=== PATIENT | male | born 1935 | race Caucasian/White ===

== ENCOUNTER 2023-04-30 17:25 | Inpatient (IN) | payer MEDICARE, OTHER ==
[~2023-04-30] VITALS: Ht 172.7 cm; Wt 51.7 kg
[2023-04-30] MEDS: PIPERACI/TAZO 3.375GM/D5W 50ML PB IV ONE (13:22)
[~2023-04-30 17:25] MED LIST: ASCO500T21 PO; HONE44PA TP
[2023-04-30 18:21] LABS: BASOPHILS % (AUTO) 0.2 % (0.0-2.0); EOSINOPHILS # (AUTO) 0.2 K/uL (0.0-0.7); EOSINOPHILS % (AUTO) 1.7 % (0.0-6.0); HEMATOCRIT 29 % (39-51); HEMOGLOBIN 9.6 g/dL (13.5-17.5); LYMPHOCYTES # (AUTO) 1.4 K/uL (0.8-4.8); LYMPHOCYTES % (AUTO) 10.6 % (20.0-44.0); MEAN CORPUSCULAR HEMOGLOBIN 31 PG (26.0-33.0); MEAN CORPUSCULAR HGB CONC 33 g/dl (31.0-36.0); MEAN CORPUSCULAR VOLUME 93 fL (80-96); MONOCYTES % (AUTO) 7.9 % (2.0-12.0); NEUTROPHILS # (AUTO) 10.5 K/uL (1.8-8.9); NEUTROPHILS % (AUTO) 79.6 % (43.0-81.0); PLATELET COUNT (AUTO) 513 K/uL (150-450); RED BLOOD CELL COUNT(AUTO) 3.11 MIL/uL (4.5-6.0); WHITE BLOOD COUNT (AUTO) 13.2 K/uL (4.3-11.0)
[2023-04-30] MEDS: PIPERACILLIN /TAZOBACTAM 3.375 G in IV D5W 50 ML IV ONE (18:25)
[2023-04-30 18:38] LABS: INR 1.1 (0.91-1.10); PARTIAL THROMBOPLASTIN TIME 35.1 SEC (24.3-34.3); PROTHROMBIN TIME 11.6 SECS (9.2-11.1)
[2023-04-30] MEDS ORDERED: INSU100I30 SQ (18:41)
[2023-04-30] MEDS ORDERED: POTA-88 PO (18:41)
[2023-04-30] MEDS ORDERED: VITS42.53 TP (18:41)
[2023-04-30] MEDS ORDERED: GABA300C PO (18:41)
[2023-04-30] MEDS ORDERED: ARGI1POW13 PO (18:41)
[2023-04-30] MEDS ORDERED: HYDR100T27 PO (18:41)
[2023-04-30] MEDS ORDERED: SENN-261 PO (18:41)
[2023-04-30] MEDS ORDERED: MULT-213 PO (18:41)
[2023-04-30] MEDS ORDERED: AMLO-212 PO (18:41)
[2023-04-30] MEDS ORDERED: ACET325T53 PO (18:41)
[2023-04-30] MEDS ORDERED: METF750T46 PO (18:41)
[2023-04-30] MEDS ORDERED: ASPI-1169 PO (18:41)
[2023-04-30] MEDS ORDERED: ATOR80TA PO (18:41)
[2023-04-30] MEDS ORDERED: CARV6.252 PO (18:41)
[2023-04-30] MEDS ORDERED: PROM12.513 PO (18:41)
[2023-04-30] MEDS ORDERED: FURO40TA5 PO (18:41)
[2023-04-30] MEDS ORDERED: APIX5TAB PO (18:41)
[2023-04-30] MEDS ORDERED: POVI480S2 TP (18:41)
[2023-04-30] MEDS ORDERED: LOSA100T31 PO (18:41)
[2023-04-30] MEDS ORDERED: POLY17PO4 PO (18:41)
[2023-04-30] MEDS ORDERED: CLOP75TA15 PO (18:41)
[2023-04-30] MEDS ORDERED: ZINC220C6 PO (18:41)
[2023-04-30] MEDS ORDERED: OMEP20CA15 PO (18:41)
[2023-04-30] MEDS ORDERED: NA P133E RC (18:41)
[2023-04-30] MEDS ORDERED: DOCU100C36 PO (18:41)
[2023-04-30] MEDS ORDERED: TRAM50TA2 PO (18:41)
[2023-04-30] MEDS ORDERED: PIOG15TA8 PO (18:41)
[2023-04-30] MEDS ORDERED: FERR325T23 PO (18:41)
[2023-04-30] MEDS ORDERED: BISA10SU11 RC (18:41)
[2023-04-30 18:42] LABS: LACTIC ACID 1.4 mmol/L (0.4-2.0)
[2023-04-30 18:55] LABS: CALCIUM, SERUM 9.7 mg/dL (8.5-10.1); CREATININE 0.9 mg/dL (0.6-1.3); POTASSIUM 4.8 mmol/L (3.5-5.1)
[2023-04-30] MEDS: VANCOMYCIN 1 GM in IV D5W 250 ML IV ONE (19:00)
[2023-04-30 19:01] LABS: ALBUMIN 2.4 g/dL (3.4-5.0); BILIRUBIN,DIRECT 0.2 mg/dL (0.0-0.2); BILIRUBIN,TOTAL 0.6 mg/dL (0.2-1.0); TOTAL PROTEIN, SERUM 7.1 g/dL (6.4-8.2)
[2023-04-30] MEDS: IV LR 1000 ML 1,000 ML BAG IV ONE (19:15)
[2023-04-30 19:25] LABS: APPEARANCE,URINE CLEAR (CLEAR); BILIRUBIN,URINE NEGATIVE (NEGATIVE); BLOOD, URINE NEGATIVE Ery/uL (NEGATIVE); COLOR,URINE YELLOW (YELLOW); KETONES,URINE 2+ mg/dL (NEGATIVE); LEUKOCYTE ESTERASE ,URINE NEGATIVE (NEGATIVE); NITRITE, URINE NEGATIVE (NEGATIVE); PH,URINE 6.5 (5.0-8.0); PROTEIN,URINE NEGATIVE (NEGATIVE); UGLUCOSE 3+ mg/dL (NEGATIVE); UROBILINOGEN,URINE 0.2 EU/dL (0.2)
[2023-04-30 20:25] LABS: SITE, VBG Other; VBG BASE EXCESS -2.8 mmol/L (-3-3); VBG COHb 0.3 %; VBG MetHb 1.4 %; VBG O2Hb 22.4 %; VBG OXYGEN SATURATION 22.8 %; VBG PCO2 39.4 mmHg (40-52); VBG PH 7.369 (7.31-7.41); VBG PO2 16.3 mmHg (30-50); VBG TOTAL HEMOGLOBIN 9.3 G/dL (13.5-18.0); VENT MODE, VBG Room Air
[2023-04-30] MEDS ORDERED: INSULIN REGULAR, HUMAN 100 UNIT/ML 10 ML VIAL ONE (21:06)
[2023-04-30] MEDS: INSULIN ASPART/LISPRO 100 UNIT/ML CARTRIDGE SQ ONE (21:18)
[2023-04-30 21:19] LABS: ADD URINE CULTURE NO; BACTERIA,URINE None seen /HPF (None Seen); RBC,URINE NONE SEEN /HPF (0-2); SQUAMOUS EPITHELIAL CELL,UR None Seen /HPF (None Seen); WBC,URINE NONE SEEN /HPF (0-3)
[2023-04-30] MEDS ORDERED: SENNOSIDES 8.6 MG TABLET PO PRN (21:30)
[2023-04-30] MEDS ORDERED: MAGNESIUM HYDROXIDE 30 ML UDC PO PRN (22:00)
[2023-04-30] MEDS ORDERED: DEXTROSE 50%-WATER 50 ML DISP.SYRIN IV PRN (22:00)
[2023-04-30] MEDS ORDERED: ONDANSETRON HCL/PF 4 MG/2 ML VIAL IVP PRN (22:00)
[2023-04-30] MEDS ORDERED: MORPHINE SULFATE INJ 2 MG/ML DISP.SYRIN IV PRN (22:00)
[2023-04-30] MEDS ORDERED: Z GUARD REMEDY 4 OZ OINT TP PRN (22:00)
[2023-04-30] MEDS ORDERED: MAG HYDROX/AL HYDROX/SIMETH 30 ML UDC PO PRN (22:00)
[2023-04-30] MEDS ORDERED: ZOLPIDEM TARTRATE 5 MG TABLET PO PRN (22:00)
[2023-04-30 22:30] VITALS: BP 126/68; TEMP 98.2; O2SAT 97
[2023-04-30 23:00] VITALS: BP 126/69; TEMP 97.9; O2SAT 96
[2023-04-30] MEDS: BLOOD SUGAR DIAGNOSTIC 1 EACH STRIP VI SCH (23:47)
[2023-04-30] MEDS: IV NS 0.9% 1,000 ML IV PRN (23:49)
[2023-04-30] MEDS: PIPERACILLIN /TAZOBACTAM 3.375 G in IV D5W 50 ML IV SCH (23:51)
[2023-04-30] MEDS: *INSULIN REGULAR(HUMULIN R)HUM 100 UNIT/ML VIAL SQ PRN (23:52)
[2023-05-01] MEDS: VANCOMYCIN 1 GM /D5W 250 ML PB IV ONE (02:07)
[2023-05-01] MEDS: VANCOMYCIN 1 GM in IV NS 0.9% 250 ML IV ONE (02:11)
[2023-05-01 04:00] VITALS: BP 130/70; TEMP 98; O2SAT 97
[2023-05-01] MEDS: PIPERACI/TAZO 3.375GM/D5W 50ML PB IV ONE (05:11)
[2023-05-01 07:27] LABS: BASOPHILS % (AUTO) 0.3 % (0.0-2.0); EOSINOPHILS # (AUTO) 0.4 K/uL (0.0-0.7); EOSINOPHILS % (AUTO) 2.3 % (0.0-6.0); HEMATOCRIT 30 % (39-51); LYMPHOCYTES # (AUTO) 2.1 K/uL (0.8-4.8); LYMPHOCYTES % (AUTO) 13.3 % (20.0-44.0); MEAN CORPUSCULAR HEMOGLOBIN 31 PG (26.0-33.0); MEAN CORPUSCULAR HGB CONC 34 g/dl (31.0-36.0); MEAN CORPUSCULAR VOLUME 93 fL (80-96); MONOCYTES # (AUTO) 1.5 K/uL (0.1-1.30); MONOCYTES % (AUTO) 9.7 % (2.0-12.0); NEUTROPHILS # (AUTO) 11.6 K/uL (1.8-8.9); NEUTROPHILS % (AUTO) 74.4 % (43.0-81.0); PLATELET COUNT (AUTO) 478 K/uL (150-450); RED BLOOD CELL COUNT(AUTO) 3.23 MIL/uL (4.5-6.0); RED CELL DISTRIBUTION WIDTH 15.1 % (11.5-15.0); WHITE BLOOD COUNT (AUTO) 15.6 K/uL (4.3-11.0)
[2023-05-01 07:58] LABS: CALCIUM, SERUM 9.6 mg/dL (8.5-10.1); CARBON DIOXIDE 27 mmol/L (21-32); CHLORIDE 101 mmol/L (98-107); CREATININE 0.8 mg/dL (0.6-1.3); GLUCOSE 152 mg/dL (74-106); MAGNESIUM 1.4 mg/dL (1.8-2.4); POTASSIUM 4.7 mmol/L (3.5-5.1); SODIUM SERUM 136 mmol/L (136-145); UREA NITROGEN, BLOOD 17 mg/dL (7-18)
[2023-05-01] MEDS: PANTOPRAZOLE 40 MG TABLET.DR PO SCH (08:25)
[2023-05-01] MEDS: INSULIN GLARGINE, 100 UNIT/ML CARTRIDGE SQ SCH (08:59)
[2023-05-01] MEDS: ASPIRIN 81 MG TAB.CHEW PO SCH (09:00)
[2023-05-01] MEDS: CARVEDILOL 6.25 MG TABLET PO SCH (09:01)
[2023-05-01] MEDS: FERROUS SULFATE (325 MG) 325 MG/TAB TABLET PO SCH (09:02)
[2023-05-01] MEDS: ASCORBIC ACID 500 MG TABLET PO SCH (09:02)
[2023-05-01] MEDS: DOCUSATE SODIUM 100 MG CAPSULE PO SCH (09:02)
[2023-05-01] MEDS: ZINC SULFATE 220 MG CAPSULE PO SCH (09:02)
[2023-05-01] MEDS: CLOPIDOGREL BISULFATE 75 MG TABLET PO SCH (09:02)
[2023-05-01] MEDS: MULTIVIT W/MINERALS 1 TAB TABLET PO SCH (09:02)
[2023-05-01] MEDS: GABAPENTIN 300 MG CAPSULE PO SCH (09:02)
[2023-05-01] MEDS: AMLODIPINE BESYLATE 5 MG TABLET PO SCH (09:02)
[2023-05-01] MEDS: POLYETHYLENE GLYCOL 3350 17 GM POWD.PACK PO SCH (09:03)
[2023-05-01] MEDS: APIXABAN 5 MG TABLET PO SCH (09:08)
[2023-05-01] MEDS: PIOGLITAZONE HCL 15 MG TABLET PO SCH (09:13)
[2023-05-01] MEDS: INSULIN REGULAR, HUMAN 100 UNIT/ML 3 ML VIAL SQ PRN (09:40)
[2023-05-01] MEDS: ACETAMINOPHEN 325 MG TABLET PO PRN (09:45)
[2023-05-01] MEDS ORDERED: MAGNESIUM OXIDE 400 MG TABLET PO ONE (10:00)
[2023-05-01] MEDS: ARGININE/GLUTAMINE/CALCIUM BMB 1 EACH POWD.PACK PO SCH (12:54)
[2023-05-01] MEDS: MAGNESIUM OXIDE 400 MG TABLET PO SCH (13:23)
[2023-05-01] MEDS: VANCOMYCIN 500 MG in IV D5W 100ml IV SCH (14:32)
[2023-05-01] MEDS: DAKINS QUARTER STRENGTH (0.125%) 480 ML BOTTLE TOP SCH (14:33)
[2023-05-01 16:00] VITALS: BP 93/47; TEMP 97.1; O2SAT 99
[2023-05-01] MEDS: LOSARTAN POTASSIUM 50 MG TABLET PO SCH (21:18)
[2023-05-01] MEDS: ATORVASTATIN 40 MG TABLET PO SCH (21:22)
[2023-05-02] VITALS: BP 100/60; TEMP 97.7; O2SAT 100
[2023-05-02 04:00] VITALS: BP 99/68; TEMP 97.8; O2SAT 100
[2023-05-02 07:48] LABS: BASOPHILS % (AUTO) 0.2 % (0.0-2.0); EOSINOPHILS # (AUTO) 0.3 K/uL (0.0-0.7); HEMATOCRIT 28 % (39-51); HEMOGLOBIN 9.4 g/dL (13.5-17.5); LYMPHOCYTES # (AUTO) 1.7 K/uL (0.8-4.8); LYMPHOCYTES % (AUTO) 10.8 % (20.0-44.0); MEAN CORPUSCULAR HEMOGLOBIN 31 PG (26.0-33.0); MEAN CORPUSCULAR HGB CONC 33 g/dl (31.0-36.0); MEAN CORPUSCULAR VOLUME 93 fL (80-96); MONOCYTES # (AUTO) 0.9 K/uL (0.1-1.30); MONOCYTES % (AUTO) 5.9 % (2.0-12.0); NEUTROPHILS # (AUTO) 12.8 K/uL (1.8-8.9); NEUTROPHILS % (AUTO) 81.1 % (43.0-81.0); PLATELET COUNT (AUTO) 459 K/uL (150-450); RED BLOOD CELL COUNT(AUTO) 3.03 MIL/uL (4.5-6.0); RED CELL DISTRIBUTION WIDTH 15.1 % (11.5-15.0); WHITE BLOOD COUNT (AUTO) 15.8 K/uL (4.3-11.0)
[2023-05-02 08:00] VITALS: BP 150/65; TEMP 97.5; O2SAT 97
[2023-05-02 08:29] LABS: BILIRUBIN,TOTAL 0.4 mg/dL (0.2-1.0); CALCIUM, SERUM 8.7 mg/dL (8.5-10.1); CREATININE 0.7 mg/dL (0.6-1.3); MAGNESIUM 1.5 mg/dL (1.8-2.4); POTASSIUM 3.8 mmol/L (3.5-5.1); TOTAL PROTEIN, SERUM 6.3 g/dL (6.4-8.2)
[2023-05-02] MEDS: THERAHONEY GEL 1.5 OZ TUBE TP SCH (13:00)
[2023-05-02] MEDS: PROSOURCE / PROSTAT (PYXIS) 30 ML UDC PO SCH (13:20)
[2023-05-02] MEDS: PREGABALIN 25 MG CAPSULE PO SCH (13:23)
[2023-05-02 16:00] VITALS: BP 145/85; TEMP 97.1; O2SAT 100
[2023-05-02 20:00] VITALS: BP 112/66; TEMP 97.9; O2SAT 100
[2023-05-03 04:00] VITALS: BP 124/47; TEMP 97.9; O2SAT 100
[2023-05-03] MEDS: HYDROCODONE/APAP 10/325MG TABLET PO PRN (06:00)
[2023-05-03 09:15] VITALS: BP 140/63; TEMP 97.5; O2SAT 100
[2023-05-03 10:12] LABS: BASOPHILS % (AUTO) 0.2 % (0.0-2.0); EOSINOPHILS # (AUTO) 0.2 K/uL (0.0-0.7); EOSINOPHILS % (AUTO) 1.6 % (0.0-6.0); HEMATOCRIT 26 % (39-51); HEMOGLOBIN 8.8 g/dL (13.5-17.5); LYMPHOCYTES # (AUTO) 1.9 K/uL (0.8-4.8); LYMPHOCYTES % (AUTO) 16.8 % (20.0-44.0); MEAN CORPUSCULAR HEMOGLOBIN 32 PG (26.0-33.0); MEAN CORPUSCULAR HGB CONC 34 g/dl (31.0-36.0); MEAN CORPUSCULAR VOLUME 95 fL (80-96); MONOCYTES # (AUTO) 0.7 K/uL (0.1-1.30); MONOCYTES % (AUTO) 6.6 % (2.0-12.0); NEUTROPHILS # (AUTO) 8.5 K/uL (1.8-8.9); NEUTROPHILS % (AUTO) 74.8 % (43.0-81.0); PLATELET COUNT (AUTO) 422 K/uL (150-450); RED BLOOD CELL COUNT(AUTO) 2.79 MIL/uL (4.5-6.0); RED CELL DISTRIBUTION WIDTH 15.3 % (11.5-15.0); WHITE BLOOD COUNT (AUTO) 11.3 K/uL (4.3-11.0)
[2023-05-03 10:45] LABS: CALCIUM, SERUM 8.1 mg/dL (8.5-10.1); CREATININE 0.8 mg/dL (0.6-1.3); MAGNESIUM 1.5 mg/dL (1.8-2.4); PHOSPHORUS 2.7 mg/dL (2.5-4.9); POTASSIUM 4.1 mmol/L (3.5-5.1)
[2023-05-03] MEDS: MAGNESIUM OXIDE 400 MG TABLET PO ONE (11:08)
[2023-05-03] MEDS ORDERED: IOHEXOL-350 100 ML VIAL IV ONE (13:58)
[2023-05-03] MEDS ORDERED: IV NS 0.9% 250 ML IV ONE (13:58)
[2023-05-03] MEDS ORDERED: CT SWABBABLE VALVE TRANS SET 1 EA INFUS.SET MC ONE (13:58)
[2023-05-03 16:09] VITALS: BP 139/71; TEMP 97.3; O2SAT 99
[2023-05-03 20:00] VITALS: BP 140/63; TEMP 98.9; O2SAT 98
[2023-05-04 04:00] VITALS: BP 148/63; TEMP 98.4; O2SAT 100
[2023-05-04 06:37] LABS: BASOPHILS % (AUTO) 0.1 % (0.0-2.0); EOSINOPHILS # (AUTO) 0.3 K/uL (0.0-0.7); EOSINOPHILS % (AUTO) 2.5 % (0.0-6.0); HEMATOCRIT 27 % (39-51); HEMOGLOBIN 8.6 g/dL (13.5-17.5); LYMPHOCYTES # (AUTO) 1.9 K/uL (0.8-4.8); LYMPHOCYTES % (AUTO) 14.4 % (20.0-44.0); MEAN CORPUSCULAR HEMOGLOBIN 30 PG (26.0-33.0); MEAN CORPUSCULAR HGB CONC 32 g/dl (31.0-36.0); MEAN CORPUSCULAR VOLUME 94 fL (80-96); MONOCYTES # (AUTO) 0.8 K/uL (0.1-1.30); MONOCYTES % (AUTO) 6.1 % (2.0-12.0); NEUTROPHILS # (AUTO) 10.1 K/uL (1.8-8.9); NEUTROPHILS % (AUTO) 76.9 % (43.0-81.0); PLATELET COUNT (AUTO) 416 K/uL (150-450); RED BLOOD CELL COUNT(AUTO) 2.84 MIL/uL (4.5-6.0); RED CELL DISTRIBUTION WIDTH 15.4 % (11.5-15.0); WHITE BLOOD COUNT (AUTO) 13.1 K/uL (4.3-11.0)
[2023-05-04 07:01] LABS: CALCIUM, SERUM 8.5 mg/dL (8.5-10.1); CREATININE 0.7 mg/dL (0.6-1.3); MAGNESIUM 1.7 mg/dL (1.8-2.4); PHOSPHORUS 2.7 mg/dL (2.5-4.9); POTASSIUM 4.3 mmol/L (3.5-5.1)
[2023-05-04 08:57] VITALS: BP 139/71; TEMP 97.3; O2SAT 99
[2023-05-04] MEDS: MAGNESIUM OXIDE 400 MG TABLET PO ONE (11:19)
[2023-05-04] MEDS: PIPERACILLIN /TAZOBACTAM 3.375 G in IV D5W 100 ML IV SCH (13:12)
[2023-05-04 16:40] VITALS: BP 147/63; TEMP 98.4; O2SAT 100
[2023-05-04 20:00] VITALS: BP 106/47; TEMP 98.1; O2SAT 100
[2023-05-05 04:00] VITALS: BP 117/73; TEMP 97.9; O2SAT 100
[2023-05-05 07:44] LABS: BASOPHILS % (AUTO) 0.3 % (0.0-2.0); EOSINOPHILS # (AUTO) 0.4 K/uL (0.0-0.7); EOSINOPHILS % (AUTO) 2.7 % (0.0-6.0); HEMATOCRIT 23 % (39-51); HEMOGLOBIN 7.5 g/dL (13.5-17.5); LYMPHOCYTES # (AUTO) 2.1 K/uL (0.8-4.8); LYMPHOCYTES % (AUTO) 14.3 % (20.0-44.0); MEAN CORPUSCULAR HEMOGLOBIN 31 PG (26.0-33.0); MEAN CORPUSCULAR HGB CONC 33 g/dl (31.0-36.0); MEAN CORPUSCULAR VOLUME 94 fL (80-96); NEUTROPHILS # (AUTO) 10.9 K/uL (1.8-8.9); NEUTROPHILS % (AUTO) 75.7 % (43.0-81.0); PLATELET COUNT (AUTO) 392 K/uL (150-450); RED BLOOD CELL COUNT(AUTO) 2.42 MIL/uL (4.5-6.0); RED CELL DISTRIBUTION WIDTH 15.6 % (11.5-15.0); WHITE BLOOD COUNT (AUTO) 14.4 K/uL (4.3-11.0)
[2023-05-05 09:41] LABS: CARBON DIOXIDE 24 mmol/L (21-32); CHLORIDE 100 mmol/L (98-107); CREATININE 0.9 mg/dL (0.6-1.3); GLUCOSE 328 mg/dL (74-106); MAGNESIUM 1.8 mg/dL (1.8-2.4); PHOSPHORUS 3.4 mg/dL (2.5-4.9); POTASSIUM 4.1 mmol/L (3.5-5.1); SODIUM SERUM 133 mmol/L (136-145); UREA NITROGEN, BLOOD 29 mg/dL (7-18)
[2023-05-05 10:18] VITALS: BP 126/71; TEMP 97.3; O2SAT 99
[2023-05-05] MEDS: VANCOMYCIN 750 MG in IV D5W 250 ML IV SCH (13:24)
[2023-05-05 16:46] VITALS: BP 130/63; TEMP 98.4; O2SAT 100
[2023-05-05 20:00] VITALS: BP 124/58; TEMP 97.4; O2SAT 100
[2023-05-06 04:00] VITALS: BP 132/94; TEMP 99; O2SAT 98
[2023-05-06 06:57] LABS: BASOPHILS # (AUTO) 0.1 K/uL (0.0-0.2); BASOPHILS % (AUTO) 0.4 % (0.0-2.0); EOSINOPHILS # (AUTO) 0.5 K/uL (0.0-0.7); EOSINOPHILS % (AUTO) 3.2 % (0.0-6.0); HEMATOCRIT 27 % (39-51); HEMOGLOBIN 8.8 g/dL (13.5-17.5); LYMPHOCYTES # (AUTO) 2.5 K/uL (0.8-4.8); LYMPHOCYTES % (AUTO) 16.7 % (20.0-44.0); MEAN CORPUSCULAR HEMOGLOBIN 31 PG (26.0-33.0); MEAN CORPUSCULAR HGB CONC 33 g/dl (31.0-36.0); MEAN CORPUSCULAR VOLUME 94 fL (80-96); MONOCYTES # (AUTO) 1.4 K/uL (0.1-1.30); MONOCYTES % (AUTO) 9.2 % (2.0-12.0); NEUTROPHILS # (AUTO) 10.8 K/uL (1.8-8.9); NEUTROPHILS % (AUTO) 70.5 % (43.0-81.0); PLATELET COUNT (AUTO) 474 K/uL (150-450); RED BLOOD CELL COUNT(AUTO) 2.86 MIL/uL (4.5-6.0); RED CELL DISTRIBUTION WIDTH 15.6 % (11.5-15.0); WHITE BLOOD COUNT (AUTO) 15.2 K/uL (4.3-11.0)
[2023-05-06 07:17] LABS: CALCIUM, SERUM 8.3 mg/dL (8.5-10.1); CARBON DIOXIDE 27 mmol/L (21-32); CHLORIDE 102 mmol/L (98-107); CREATININE 0.9 mg/dL (0.6-1.3); GLUCOSE 90 mg/dL (74-106); PHOSPHORUS 3.6 mg/dL (2.5-4.9); POTASSIUM 4.6 mmol/L (3.5-5.1); SODIUM SERUM 132 mmol/L (136-145); UREA NITROGEN, BLOOD 31 mg/dL (7-18)
[2023-05-06 08:00] VITALS: BP 107/60; TEMP 98; O2SAT 98
[2023-05-06 16:00] VITALS: BP 128/64; TEMP 98; O2SAT 99
[2023-05-06] MEDS: LIDOCAINE 1% INJ 50 ML MDV IJ ONE (17:35)
[2023-05-06 20:00] VITALS: BP 102/70; TEMP 97.9; O2SAT 99
[2023-05-07 04:00] VITALS: BP 114/57; TEMP 97.7; O2SAT 99
[2023-05-07 07:18] LABS: BASOPHILS # (AUTO) 0.1 K/uL (0.0-0.2); BASOPHILS % (AUTO) 0.4 % (0.0-2.0); EOSINOPHILS # (AUTO) 0.5 K/uL (0.0-0.7); EOSINOPHILS % (AUTO) 2.6 % (0.0-6.0); HEMATOCRIT 25 % (39-51); HEMOGLOBIN 8.4 g/dL (13.5-17.5); LYMPHOCYTES # (AUTO) 2.2 K/uL (0.8-4.8); LYMPHOCYTES % (AUTO) 11.9 % (20.0-44.0); MEAN CORPUSCULAR HEMOGLOBIN 32 PG (26.0-33.0); MEAN CORPUSCULAR HGB CONC 34 g/dl (31.0-36.0); MEAN CORPUSCULAR VOLUME 94 fL (80-96); MONOCYTES # (AUTO) 1.6 K/uL (0.1-1.30); MONOCYTES % (AUTO) 8.9 % (2.0-12.0); NEUTROPHILS # (AUTO) 13.8 K/uL (1.8-8.9); NEUTROPHILS % (AUTO) 76.2 % (43.0-81.0); PLATELET COUNT (AUTO) 473 K/uL (150-450); RED BLOOD CELL COUNT(AUTO) 2.66 MIL/uL (4.5-6.0); RED CELL DISTRIBUTION WIDTH 15.5 % (11.5-15.0); WHITE BLOOD COUNT (AUTO) 18.1 K/uL (4.3-11.0)
[2023-05-07 07:49] LABS: CALCIUM, SERUM 8.2 mg/dL (8.5-10.1); CREATININE 0.9 mg/dL (0.6-1.3); POTASSIUM 4.9 mmol/L (3.5-5.1)
[2023-05-07 13:20] VITALS: BP 104/51; TEMP 97.7; O2SAT 99
[2023-05-07] MEDS: VANCOMYCIN 500 MG in IV D5W 100ml IV SCH (14:51)
[2023-05-07 20:00] VITALS: BP 114/51; TEMP 98.2; O2SAT 99
[2023-05-08 04:00] VITALS: BP 108/77; TEMP 98.4; O2SAT 99
[2023-05-08 07:00] LABS: BASOPHILS % (AUTO) 0.3 % (0.0-2.0); EOSINOPHILS # (AUTO) 0.5 K/uL (0.0-0.7); EOSINOPHILS % (AUTO) 2.9 % (0.0-6.0); HEMATOCRIT 22 % (39-51); HEMOGLOBIN 7.4 g/dL (13.5-17.5); LYMPHOCYTES # (AUTO) 2.1 K/uL (0.8-4.8); LYMPHOCYTES % (AUTO) 13.1 % (20.0-44.0); MEAN CORPUSCULAR HEMOGLOBIN 32 PG (26.0-33.0); MEAN CORPUSCULAR HGB CONC 34 g/dl (31.0-36.0); MEAN CORPUSCULAR VOLUME 93 fL (80-96); MONOCYTES # (AUTO) 1.6 K/uL (0.1-1.30); MONOCYTES % (AUTO) 9.6 % (2.0-12.0); NEUTROPHILS # (AUTO) 12.1 K/uL (1.8-8.9); NEUTROPHILS % (AUTO) 74.1 % (43.0-81.0); PLATELET COUNT (AUTO) 416 K/uL (150-450); RED BLOOD CELL COUNT(AUTO) 2.34 MIL/uL (4.5-6.0); RED CELL DISTRIBUTION WIDTH 15.6 % (11.5-15.0); WHITE BLOOD COUNT (AUTO) 16.3 K/uL (4.3-11.0)
[2023-05-08 07:33] LABS: CALCIUM, SERUM 8.2 mg/dL (8.5-10.1); CARBON DIOXIDE 24 mmol/L (21-32); CHLORIDE 98 mmol/L (98-107); CREATININE 0.9 mg/dL (0.6-1.3); GLUCOSE 213 mg/dL (74-106); PHOSPHORUS 3.6 mg/dL (2.5-4.9); SODIUM SERUM 127 mmol/L (136-145); UREA NITROGEN, BLOOD 37 mg/dL (7-18)
[2023-05-08] MEDS ORDERED: LEVO500T90 PO (09:30)
[2023-05-08] MEDS ORDERED: DOXY100C2 PO (09:30)
[2023-05-08 12:00] VITALS: BP 128/57; TEMP 98.4; O2SAT 99
== END 2023-05-08 14:30 | DRG 622 ==
LOC: ER 17:35 → TELE1 21:55 → MEDSG1 23:05
PROVIDERS: ADMIT Nurse Practitioner Acute Care; ATTEND Internal Medicine
PROC: 0JB70ZZ Excision of Back Subcutaneous Tissue and Fascia, Open Approach (ICD-10-PCS; principal; 2023-05-02)
PROC: 05HC33Z Insertion of Infusion Device into Left Basilic Vein, Percutaneous Approach (ICD-10-PCS; 2023-05-03)
PROC: 0QBQ0ZZ Excision of Right Toe Phalanx, Open Approach (ICD-10-PCS; 2023-05-07)
DX: E11.69 Type 2 diabetes mellitus with other specified complication (principal); G93.41 Metabolic encephalopathy; L89.153 Pressure ulcer of sacral region, stage 3; E11.52 Type 2 diabetes mellitus with diabetic peripheral angiopathy with gangrene; E44.0 Moderate protein-calorie malnutrition; R65.10 Systemic inflammatory response syndrome (SIRS) of non-infectious origin without acute organ dysfunction; M86.172 Other acute osteomyelitis, left ankle and foot; M86.171 Other acute osteomyelitis, right ankle and foot; I70.268 Atherosclerosis of native arteries of extremities with gangrene, other extremity; E11.621 Type 2 diabetes mellitus with foot ulcer; E11.65 Type 2 diabetes mellitus with hyperglycemia; Z20.822 Contact with and (suspected) exposure to COVID-19; F03.90 Unspecified dementia, unspecified severity, without behavioral disturbance, psychotic disturbance, mood disturbance, and anxiety; Z86.69 Personal history of other diseases of the nervous system and sense organs; I25.10 Atherosclerotic heart disease of native coronary artery without angina pectoris; E78.5 Hyperlipidemia, unspecified; E11.622 Type 2 diabetes mellitus with other skin ulcer; E11.42 Type 2 diabetes mellitus with diabetic polyneuropathy; E88.09 Other disorders of plasma-protein metabolism, not elsewhere classified; I11.0 Hypertensive heart disease with heart failure; I50.9 Heart failure, unspecified; N40.0 Benign prostatic hyperplasia without lower urinary tract symptoms; D64.9 Anemia, unspecified; D72.829 Elevated white blood cell count, unspecified; G89.29 Other chronic pain; Z79.84 Long term (current) use of oral hypoglycemic drugs; Z79.4 Long term (current) use of insulin; Z79.02 Long term (current) use of antithrombotics/antiplatelets; Z79.01 Long term (current) use of anticoagulants; Z79.82 Long term (current) use of aspirin; Z91.199 Patient's noncompliance with other medical treatment and regimen due to unspecified reason; L89.300 Pressure ulcer of unspecified buttock, unstageable; L98.494 Non-pressure chronic ulcer of skin of other sites with necrosis of bone
CPT/HCPCS: 36410; 36415; 71045-TC; 73660-TC; 80048-TC; 80053-TC; 80076-TC; 80202-TC; 81001; 82607-TC; 82728-TC; 82803-TC; 82962-TC; 83540-TC; 83605-TC; 83735-TC; 84100-TC; 85025-TC; 85730-TC; 87040-TC; 87086-TC; 93307-TC; 97110-TC; 97530-TC; A4223; A6253; A6403; G0378; J1815; J2543; J3370; J3371; J3490; J7030; J7050; J7060; J7120; Q9967

== ENCOUNTER 2023-05-15 17:12 | Inpatient (IN) | payer MEDICARE, OTHER ==
[~2023-05-15] VITALS: Ht 167.6 cm; Wt 58.1 kg
[~2023-05-15 17:12] MED LIST changes: +ACET325T53 PO; +AMLO-212 PO; +APIX5TAB PO; +ARGI1POW13 PO; +ASPI-1169 PO; +ATOR80TA PO; +BISA10SU11 RC; +CARV6.252 PO; +CLOP75TA15 PO; +DOCU100C36 PO; +DOXY100C2 PO; +FERR325T23 PO; +FURO40TA5 PO; +GABA300C PO; +HYDR100T27 PO; +INSU100I30 SQ; +LEVO500T90 PO; +LOSA100T31 PO; +METF750T46 PO; +MULT-213 PO; +NA P133E RC; +OMEP20CA15 PO; +PIOG15TA8 PO; +POLY17PO4 PO; +POTA-88 PO; +POVI480S2 TP; +PROM12.513 PO; +SENN-261 PO; +TRAM50TA2 PO; +VITS42.53 TP; +ZINC220C6 PO
[2023-05-15] MEDS ORDERED: CHOL100043 PO (18:24)
[2023-05-15] MEDS ORDERED: LEVO250T59 PO (18:24)
[2023-05-15] MEDS ORDERED: MANUKA HONEY TP (18:24)
[2023-05-15] MEDS ORDERED: GLUC1KIT IM (18:24)
[2023-05-15] MEDS ORDERED: DOXY100T2 PO (18:24)
[2023-05-15] MEDS ORDERED: POVI3780 TP (18:24)
[2023-05-15] MEDS ORDERED: TRAMADOL HCL 50 MG TABLET ONE (18:25)
[2023-05-15 18:27] LABS: BASOPHILS # (AUTO) 0.1 K/uL (0.0-0.2); BASOPHILS % (AUTO) 0.5 % (0.0-2.0); EOSINOPHILS # (AUTO) 0.3 K/uL (0.0-0.7); EOSINOPHILS % (AUTO) 2.3 % (0.0-6.0); HEMATOCRIT 23 % (39-51); HEMOGLOBIN 7.6 g/dL (13.5-17.5); LYMPHOCYTES # (AUTO) 1.3 K/uL (0.8-4.8); LYMPHOCYTES % (AUTO) 9.4 % (20.0-44.0); MEAN CORPUSCULAR HEMOGLOBIN 31 PG (26.0-33.0); MEAN CORPUSCULAR HGB CONC 33 g/dl (31.0-36.0); MEAN CORPUSCULAR VOLUME 92 fL (80-96); MONOCYTES # (AUTO) 0.7 K/uL (0.1-1.30); MONOCYTES % (AUTO) 4.8 % (2.0-12.0); NEUTROPHILS # (AUTO) 11.7 K/uL (1.8-8.9); PLATELET COUNT (AUTO) 533 K/uL (150-450); RED BLOOD CELL COUNT(AUTO) 2.48 MIL/uL (4.5-6.0); RED CELL DISTRIBUTION WIDTH 16.3 % (11.5-15.0); WHITE BLOOD COUNT (AUTO) 14.1 K/uL (4.3-11.0)
[2023-05-15] MEDS: TRAMADOL HCL 50 MG TABLET PO ONE (18:32)
[2023-05-15 18:40] LABS: CARBON DIOXIDE 24 mmol/L (21-32); CHLORIDE 97 mmol/L (98-107); CREATININE 0.8 mg/dL (0.6-1.3); GLUCOSE 185 mg/dL (74-106); POTASSIUM 5.2 mmol/L (3.5-5.1); SODIUM SERUM 124 mmol/L (136-145); UREA NITROGEN, BLOOD 18 mg/dL (7-18)
[2023-05-15 18:48] LABS: INR 1.13 (0.91-1.10); PARTIAL THROMBOPLASTIN TIME 51.6 SEC (24.3-34.3); PROTHROMBIN TIME 11.5 SECS (9.2-11.1)
[2023-05-15] MEDS ORDERED: MORPHINE SULFATE INJ 4 MG/ML DISP.SYRIN ONE (20:02)
[2023-05-15] MEDS: IV NS 0.9% 1,000 ML BAG IV ONE (20:03)
[2023-05-15] MEDS: MORPHINE SULFATE INJ 2 MG/ML DISP.SYRIN IV ONE (20:03)
[2023-05-15 21:40] VITALS: TEMP 98.8; O2SAT 97
[2023-05-15] MEDS: IV NS 0.9% 1,000 ML IV PRN (22:52)
[2023-05-15] MEDS ORDERED: Z GUARD REMEDY 4 OZ OINT TP PRN (23:00)
[2023-05-15] MEDS ORDERED: ZOLPIDEM TARTRATE 5 MG TABLET PO PRN (23:00)
[2023-05-15] MEDS ORDERED: ONDANSETRON HCL/PF 4 MG/2 ML VIAL IVP PRN (23:00)
[2023-05-15] MEDS ORDERED: MAG HYDROX/AL HYDROX/SIMETH 30 ML UDC PO PRN (23:00)
[2023-05-15] MEDS ORDERED: MAGNESIUM HYDROXIDE 30 ML UDC PO PRN (23:00)
[2023-05-15] MEDS: *INSULIN REGULAR(HUMULIN R)HUM 100 UNIT/ML VIAL SQ PRN (23:20)
[2023-05-15] MEDS ORDERED: NA PHOS,M-B/NA PHOS,DI-BA 1 EA ENEMA RC PRN (23:30)
[2023-05-15] MEDS ORDERED: ACETAMINOPHEN 325 MG TABLET PO PRN (23:30)
[2023-05-16] VITALS: BP 130/67; TEMP 98.7; O2SAT 94
[2023-05-16 04:46] VITALS: BP 132/55; TEMP 98.7; O2SAT 94
[2023-05-16] MEDS ORDERED: GLUCAGON,HUMAN RECOMBINANT 1 MG/VIAL VIAL IM PRN (06:00)
[2023-05-16 06:38] LABS: BASOPHILS % (AUTO) 0.3 % (0.0-2.0); EOSINOPHILS # (AUTO) 0.4 K/uL (0.0-0.7); EOSINOPHILS % (AUTO) 2.5 % (0.0-6.0); HEMATOCRIT 22 % (39-51); HEMOGLOBIN 7.3 g/dL (13.5-17.5); LYMPHOCYTES # (AUTO) 1.5 K/uL (0.8-4.8); LYMPHOCYTES % (AUTO) 10.8 % (20.0-44.0); MEAN CORPUSCULAR HEMOGLOBIN 31 PG (26.0-33.0); MEAN CORPUSCULAR HGB CONC 34 g/dl (31.0-36.0); MEAN CORPUSCULAR VOLUME 92 fL (80-96); MONOCYTES # (AUTO) 0.9 K/uL (0.1-1.30); MONOCYTES % (AUTO) 6.1 % (2.0-12.0); NEUTROPHILS # (AUTO) 11.4 K/uL (1.8-8.9); NEUTROPHILS % (AUTO) 80.3 % (43.0-81.0); PLATELET COUNT (AUTO) 500 K/uL (150-450); RED BLOOD CELL COUNT(AUTO) 2.33 MIL/uL (4.5-6.0); RED CELL DISTRIBUTION WIDTH 16.2 % (11.5-15.0); WHITE BLOOD COUNT (AUTO) 14.2 K/uL (4.3-11.0)
[2023-05-16] MEDS: BLOOD SUGAR DIAGNOSTIC 1 EACH STRIP VI SCH (06:47)
[2023-05-16] MEDS: INSULIN REGULAR, HUMAN 100 UNIT/ML 3 ML VIAL SQ PRN (06:48)
[2023-05-16 06:51] LABS: CALCIUM, SERUM 8.1 mg/dL (8.5-10.1); CREATININE 0.8 mg/dL (0.6-1.3); PHOSPHORUS 2.8 mg/dL (2.5-4.9); POTASSIUM 4.5 mmol/L (3.5-5.1)
[2023-05-16 06:52] LABS: MAGNESIUM 1.2 mg/dL (1.8-2.4)
[2023-05-16 07:30] VITALS: BP 134/72; TEMP 98.8; O2SAT 96
[2023-05-16 07:57] LABS: THYROID STIMULATING HORMONE 5.277 uIU/mL (0.358-3.74)
[2023-05-16 08:18] VITALS: O2SAT 95
[2023-05-16] MEDS: INSULIN GLARGINE, 100 UNIT/ML CARTRIDGE SQ SCH (08:28)
[2023-05-16] MEDS: FERROUS SULFATE (325 MG) 325 MG/TAB TABLET PO SCH (08:39)
[2023-05-16] MEDS: MULTIVIT W/MINERALS 1 TAB TABLET PO SCH (08:39)
[2023-05-16] MEDS: PANTOPRAZOLE 40 MG VIAL IV SCH (08:39)
[2023-05-16] MEDS: LEVOFLOXACIN (250MG) 250 MG TABLET PO SCH (08:39)
[2023-05-16] MEDS: ASCORBIC ACID 500 MG TABLET PO SCH (08:39)
[2023-05-16] MEDS: CHOLECALCIFEROL 1,000 UNIT TABLET (VIT D3) PO SCH (08:39)
[2023-05-16] MEDS: TRAMADOL HCL 50 MG TABLET PO SCH (08:40)
[2023-05-16] MEDS: GABAPENTIN 300 MG CAPSULE PO SCH (08:41)
[2023-05-16] MEDS: AMLODIPINE BESYLATE 5 MG TABLET PO SCH (08:41)
[2023-05-16] MEDS: DOXYCYCLINE HYCLATE (100 MG) 100 MG TABLET PO SCH (08:41)
[2023-05-16] MEDS: ZINC SULFATE 220 MG CAPSULE PO SCH (08:42)
[2023-05-16] MEDS: hydrALAZINE HCL 50 MG TABLET PO SCH (08:42)
[2023-05-16] MEDS: DOCUSATE SODIUM 100 MG CAPSULE PO SCH (08:42)
[2023-05-16] MEDS: CARVEDILOL 6.25 MG TABLET PO SCH (08:42)
[2023-05-16] MEDS: POLYETHYLENE GLYCOL 3350 17 GM POWD.PACK PO SCH (08:46)
[2023-05-16] MEDS: ARGININE/GLUTAMINE/CALCIUM BMB 1 EACH POWD.PACK PO SCH (09:45)
[2023-05-16] MEDS: Magnesium 1GM/D5W 100ML PREMIX 100 ML IV SCH (11:16)
[2023-05-16] MEDS: THERAHONEY GEL 1.5 OZ TUBE TP SCH (12:11)
[2023-05-16] MEDS: SILVER NITRATE APPLICATOR 1 EA BOX TP STA (12:12)
[2023-05-16] MEDS: LIDOCAINE 1%-EPI 1:100,000 20 ML VIAL TP STA (12:12)
[2023-05-16 16:00] VITALS: BP 138/69; TEMP 98.2; O2SAT 90
[2023-05-16 20:00] VITALS: BP 126/57; TEMP 97.8; O2SAT 95
[2023-05-16] MEDS: SENNOSIDES 8.6 MG TABLET PO SCH (21:44)
[2023-05-16] MEDS: ATORVASTATIN 40 MG TABLET PO SCH (21:45)
[2023-05-16] MEDS ORDERED: LOSARTAN POTASSIUM 50 MG TABLET PO SCH (22:00)
[2023-05-17] VITALS (8 sets, daily range): BP systolic 94–137; BP diastolic 47–60; TEMP 97.5–99; O2SAT 93–100
[2023-05-17 06:16] LABS: BASOPHILS % (AUTO) 0.4 % (0.0-2.0); EOSINOPHILS # (AUTO) 0.4 K/uL (0.0-0.7); EOSINOPHILS % (AUTO) 3.5 % (0.0-6.0); HEMATOCRIT 23 % (39-51); HEMOGLOBIN 7.7 g/dL (13.5-17.5); LYMPHOCYTES # (AUTO) 1.5 K/uL (0.8-4.8); MEAN CORPUSCULAR HEMOGLOBIN 32 PG (26.0-33.0); MEAN CORPUSCULAR HGB CONC 33 g/dl (31.0-36.0); MEAN CORPUSCULAR VOLUME 95 fL (80-96); MONOCYTES # (AUTO) 1.1 K/uL (0.1-1.30); MONOCYTES % (AUTO) 9.6 % (2.0-12.0); NEUTROPHILS # (AUTO) 8.7 K/uL (1.8-8.9); NEUTROPHILS % (AUTO) 73.5 % (43.0-81.0); PLATELET COUNT (AUTO) 479 K/uL (150-450); RED BLOOD CELL COUNT(AUTO) 2.43 MIL/uL (4.5-6.0); RED CELL DISTRIBUTION WIDTH 16.3 % (11.5-15.0); WHITE BLOOD COUNT (AUTO) 11.8 K/uL (4.3-11.0)
[2023-05-17 06:25] LABS: CALCIUM, SERUM 7.9 mg/dL (8.5-10.1); CARBON DIOXIDE 21 mmol/L (21-32); CHLORIDE 100 mmol/L (98-107); CREATININE 0.6 mg/dL (0.6-1.3); GLUCOSE 109 mg/dL (74-106); MAGNESIUM 1.6 mg/dL (1.8-2.4); PHOSPHORUS 2.9 mg/dL (2.5-4.9); POTASSIUM 4.1 mmol/L (3.5-5.1); SODIUM SERUM 129 mmol/L (136-145); UREA NITROGEN, BLOOD 11 mg/dL (7-18)
[2023-05-17 06:30] LABS: URIC ACID 3.3 mg/dL (2.6-7.2)
[2023-05-17] MEDS: MAGNESIUM OXIDE 400 MG TABLET PO ONE (08:35)
[2023-05-17] MEDS: ACETAMINOPHEN 325 MG TABLET PO PRN (08:44)
[2023-05-17] MEDS: PANTOPRAZOLE 40 MG TABLET.DR PO SCH (08:44)
[2023-05-17] MEDS ORDERED: PIPERACILLIN /TAZOBACTAM 3.375 G in IV D5W 50 ML IV SCH (10:00)
[2023-05-17] MEDS: FUROSEMIDE 40 MG/4 ML VIAL IV SCH (11:13)
[2023-05-17] MEDS: ZOSYN IVPB 4.5 G in IV D5W 50ml IV SCH (11:17)
[2023-05-17] MEDS: ACETAMINOPHEN 325 MG TABLET PO SCH (15:27)
[2023-05-17] MEDS: FUROSEMIDE 40 MG/4 ML VIAL IV ONE (20:14)
[2023-05-17 20:45] LABS: URINE SODIUM, RANDOM 138 mmol/l (40-220)
[2023-05-18] VITALS (8 sets, daily range): BP systolic 96–163; BP diastolic 46–65; TEMP 97–98.2; O2SAT 96–99
[2023-05-18] MEDS: DEXTROSE 50%-WATER 50 ML DISP.SYRIN IV PRN (06:30)
[2023-05-18 07:40] LABS: BASOPHILS # (AUTO) 0.1 K/uL (0.0-0.2); BASOPHILS % (AUTO) 0.4 % (0.0-2.0); EOSINOPHILS # (AUTO) 0.5 K/uL (0.0-0.7); EOSINOPHILS % (AUTO) 3.6 % (0.0-6.0); HEMATOCRIT 22 % (39-51); HEMOGLOBIN 7.2 g/dL (13.5-17.5); LYMPHOCYTES # (AUTO) 1.7 K/uL (0.8-4.8); LYMPHOCYTES % (AUTO) 11.3 % (20.0-44.0); MEAN CORPUSCULAR HEMOGLOBIN 31 PG (26.0-33.0); MEAN CORPUSCULAR HGB CONC 33 g/dl (31.0-36.0); MEAN CORPUSCULAR VOLUME 93 fL (80-96); MONOCYTES # (AUTO) 1.6 K/uL (0.1-1.30); MONOCYTES % (AUTO) 10.8 % (2.0-12.0); NEUTROPHILS # (AUTO) 11.1 K/uL (1.8-8.9); NEUTROPHILS % (AUTO) 73.9 % (43.0-81.0); PLATELET COUNT (AUTO) 443 K/uL (150-450); RED BLOOD CELL COUNT(AUTO) 2.33 MIL/uL (4.5-6.0); RED CELL DISTRIBUTION WIDTH 16.5 % (11.5-15.0)
[2023-05-18 08:06] LABS: CREATININE 0.9 mg/dL (0.6-1.3); POTASSIUM 3.3 mmol/L (3.5-5.1)
[2023-05-18 15:55] LABS: OSMOLALITY,URINE 609 mOS/kg (340-1090)
[2023-05-18] MEDS: POTASSIUM CHLORIDE 20 MEQ TAB.PRT.SR PO SCH (16:25)
[2023-05-19] VITALS (8 sets, daily range): BP systolic 95–128; BP diastolic 48–78; TEMP 97.5–98.2; O2SAT 97–99
[2023-05-19 07:07] LABS: BASOPHILS % (AUTO) 0.4 % (0.0-2.0); EOSINOPHILS # (AUTO) 0.6 K/uL (0.0-0.7); EOSINOPHILS % (AUTO) 4.7 % (0.0-6.0); HEMATOCRIT 23 % (39-51); HEMOGLOBIN 7.7 g/dL (13.5-17.5); LYMPHOCYTES # (AUTO) 1.4 K/uL (0.8-4.8); LYMPHOCYTES % (AUTO) 11.2 % (20.0-44.0); MEAN CORPUSCULAR HEMOGLOBIN 32 PG (26.0-33.0); MEAN CORPUSCULAR HGB CONC 34 g/dl (31.0-36.0); MEAN CORPUSCULAR VOLUME 94 fL (80-96); MONOCYTES # (AUTO) 1.2 K/uL (0.1-1.30); MONOCYTES % (AUTO) 9.7 % (2.0-12.0); NEUTROPHILS # (AUTO) 9.4 K/uL (1.8-8.9); PLATELET COUNT (AUTO) 443 K/uL (150-450); RED BLOOD CELL COUNT(AUTO) 2.44 MIL/uL (4.5-6.0); RED CELL DISTRIBUTION WIDTH 16.6 % (11.5-15.0); WHITE BLOOD COUNT (AUTO) 12.7 K/uL (4.3-11.0)
[2023-05-19 07:17] LABS: CALCIUM, SERUM 7.7 mg/dL (8.5-10.1); CARBON DIOXIDE 24 mmol/L (21-32); CHLORIDE 102 mmol/L (98-107); CREATININE 0.8 mg/dL (0.6-1.3); GLUCOSE 125 mg/dL (74-106); POTASSIUM 4.2 mmol/L (3.5-5.1); SODIUM SERUM 134 mmol/L (136-145); UREA NITROGEN, BLOOD 16 mg/dL (7-18)
[2023-05-19] MEDS: FUROSEMIDE 40 MG/4 ML VIAL IV SCH (09:17)
[2023-05-19] MEDS: ARGININE/GLUTAMINE/CALCIUM BMB 1 EACH POWD.PACK PO SCH (09:30)
[2023-05-19] MEDS: BISACODYL SUPP (10 MG) 10 MG/SUPP.RECT SUPP.RECT RC PRN (10:37)
[2023-05-19] MEDS: FUROSEMIDE 100 MG/10 ML VIAL IV SCH (11:24)
[2023-05-19] MEDS: PROSOURCE / PROSTAT (PYXIS) 30 ML UDC PO SCH (12:54)
[2023-05-20] VITALS (7 sets, daily range): BP systolic 96–125; BP diastolic 45–56; TEMP 97.2–98.4; O2SAT 94–99
[2023-05-20 07:14] LABS: BASOPHILS # (AUTO) 0.1 K/uL (0.0-0.2); BASOPHILS % (AUTO) 0.6 % (0.0-2.0); EOSINOPHILS # (AUTO) 0.5 K/uL (0.0-0.7); HEMATOCRIT 22 % (39-51); HEMOGLOBIN 7.3 g/dL (13.5-17.5); LYMPHOCYTES # (AUTO) 1.6 K/uL (0.8-4.8); LYMPHOCYTES % (AUTO) 15.2 % (20.0-44.0); MEAN CORPUSCULAR HEMOGLOBIN 31 PG (26.0-33.0); MEAN CORPUSCULAR HGB CONC 34 g/dl (31.0-36.0); MEAN CORPUSCULAR VOLUME 93 fL (80-96); MONOCYTES % (AUTO) 9.7 % (2.0-12.0); NEUTROPHILS # (AUTO) 7.5 K/uL (1.8-8.9); NEUTROPHILS % (AUTO) 69.5 % (43.0-81.0); PLATELET COUNT (AUTO) 424 K/uL (150-450); RED BLOOD CELL COUNT(AUTO) 2.32 MIL/uL (4.5-6.0); RED CELL DISTRIBUTION WIDTH 16.5 % (11.5-15.0); WHITE BLOOD COUNT (AUTO) 10.8 K/uL (4.3-11.0)
[2023-05-20 08:08] LABS: ALBUMIN 1.5 g/dL (3.4-5.0); BILIRUBIN,TOTAL 0.4 mg/dL (0.2-1.0); CALCIUM, SERUM 7.9 mg/dL (8.5-10.1); CREATININE 0.8 mg/dL (0.6-1.3); MAGNESIUM 1.6 mg/dL (1.8-2.4); PHOSPHORUS 3.6 mg/dL (2.5-4.9); POTASSIUM 3.4 mmol/L (3.5-5.1); TOTAL PROTEIN, SERUM 5.3 g/dL (6.4-8.2)
[2023-05-20] MEDS ORDERED: POTASSIUM CHLORIDE 20 MEQ TAB.PRT.SR PO ONE (10:00)
[2023-05-20] MEDS: POTASSIUM CHLORIDE 20 MEQ TAB.PRT.SR PO SCH (10:09)
[2023-05-20] MEDS: MAGNESIUM OXIDE 400 MG TABLET PO ONE (10:09)
[2023-05-20] MEDS: FUROSEMIDE 100 MG/10 ML VIAL IV SCH (10:28)
[2023-05-20 18:36] LABS: PROTEIN, BODY FLUID 2.5 G/DL
[2023-05-20 18:53] LABS: APPEARANCE,SPUN,BODY FLUID CLEAR (CLEAR)
[2023-05-20 18:54] LABS: TOTAL VOLUME,BODY FLUID 1200 mL
[2023-05-20 19:32] LABS: WBC, BODY FLUID 395 /cu. mm. (0-200)
[2023-05-20 20:04] LABS: MACROPHAGES, BODY FLUID 57; POLYNUCLEAR, BODY FLUID 12 % (0-25)
[2023-05-21] VITALS: BP 102/50; TEMP 98.1; O2SAT 96
[2023-05-21 04:00] VITALS: BP 111/73; TEMP 97.8; O2SAT 97
[2023-05-21 04:25] VITALS: BP 113/73; TEMP 97; O2SAT 97
[2023-05-21 06:37] LABS: BASOPHILS # (AUTO) 0.1 K/uL (0.0-0.2); BASOPHILS % (AUTO) 0.5 % (0.0-2.0); EOSINOPHILS # (AUTO) 0.4 K/uL (0.0-0.7); EOSINOPHILS % (AUTO) 3.1 % (0.0-6.0); HEMATOCRIT 24 % (39-51); HEMOGLOBIN 7.7 g/dL (13.5-17.5); LYMPHOCYTES # (AUTO) 1.7 K/uL (0.8-4.8); LYMPHOCYTES % (AUTO) 12.7 % (20.0-44.0); MEAN CORPUSCULAR HEMOGLOBIN 31 PG (26.0-33.0); MEAN CORPUSCULAR HGB CONC 33 g/dl (31.0-36.0); MEAN CORPUSCULAR VOLUME 94 fL (80-96); MONOCYTES # (AUTO) 0.9 K/uL (0.1-1.30); MONOCYTES % (AUTO) 6.5 % (2.0-12.0); NEUTROPHILS # (AUTO) 10.6 K/uL (1.8-8.9); NEUTROPHILS % (AUTO) 77.2 % (43.0-81.0); PLATELET COUNT (AUTO) 446 K/uL (150-450); RED BLOOD CELL COUNT(AUTO) 2.51 MIL/uL (4.5-6.0); RED CELL DISTRIBUTION WIDTH 16.9 % (11.5-15.0); WHITE BLOOD COUNT (AUTO) 13.7 K/uL (4.3-11.0)
[2023-05-21 06:57] LABS: ALBUMIN 1.7 g/dL (3.4-5.0); BILIRUBIN,TOTAL 0.5 mg/dL (0.2-1.0); CALCIUM, SERUM 8.3 mg/dL (8.5-10.1); MAGNESIUM 1.8 mg/dL (1.8-2.4); POTASSIUM 4.1 mmol/L (3.5-5.1); TOTAL PROTEIN, SERUM 5.7 g/dL (6.4-8.2)
[2023-05-21 08:40] VITALS: BP 121/52; TEMP 97.9; O2SAT 100
[2023-05-21 09:45] LABS: THYROID STIMULATING HORMONE 5.368 uIU/mL (0.358-3.74)
[2023-05-21 10:15] VITALS: O2SAT 97
[2023-05-21 16:47] VITALS: BP 119/54; TEMP 97.5; O2SAT 98
[2023-05-21] MEDS ORDERED: PIPERCILLIN/TAZOBACTAM 2.25GM/D5W 50MLPB IV ONE (21:17)
[2023-05-22] MEDS ORDERED: PIPERCILLIN/TAZOBACTAM 2.25GM/D5W 50MLPB IV ONE (03:39)
[2023-05-22 06:29] VITALS: O2SAT 97
[2023-05-22] MEDS: PIPERACILLIN /TAZOBACTAM 4.5 G in IV D5W 100 ML IV SCH (12:31)
[2023-05-22 14:26] VITALS: O2SAT 97
[2023-05-22 16:07] VITALS: BP 138/55
== END 2023-05-22 21:19 | DRG 166 ==
LOC: ER 17:15 → TELE 21:05 → TELE1 05-21 18:22
PROVIDERS: ADMIT Student in an Organized Health Care Education/Training Program; ATTEND Internal Medicine
PROC: 0JB70ZZ Excision of Back Subcutaneous Tissue and Fascia, Open Approach (ICD-10-PCS; principal; 2023-05-16)
PROC: 0W993ZX Drainage of Right Pleural Cavity, Percutaneous Approach, Diagnostic (ICD-10-PCS; 2023-05-20)
DX: J15.69 Pneumonia due to other Gram-negative bacteria (principal); G93.41 Metabolic encephalopathy; J96.01 Acute respiratory failure with hypoxia; L89.153 Pressure ulcer of sacral region, stage 3; U07.1 COVID-19; E87.1 Hypo-osmolality and hyponatremia; E44.0 Moderate protein-calorie malnutrition; E11.52 Type 2 diabetes mellitus with diabetic peripheral angiopathy with gangrene; M86.172 Other acute osteomyelitis, left ankle and foot; M86.171 Other acute osteomyelitis, right ankle and foot; I70.268 Atherosclerosis of native arteries of extremities with gangrene, other extremity; D64.9 Anemia, unspecified; I11.0 Hypertensive heart disease with heart failure; I50.9 Heart failure, unspecified; E87.5 Hyperkalemia; E11.69 Type 2 diabetes mellitus with other specified complication; I25.10 Atherosclerotic heart disease of native coronary artery without angina pectoris; L97.529 Non-pressure chronic ulcer of other part of left foot with unspecified severity; L97.519 Non-pressure chronic ulcer of other part of right foot with unspecified severity; E11.42 Type 2 diabetes mellitus with diabetic polyneuropathy; E11.622 Type 2 diabetes mellitus with other skin ulcer; E11.621 Type 2 diabetes mellitus with foot ulcer; E11.65 Type 2 diabetes mellitus with hyperglycemia; N40.0 Benign prostatic hyperplasia without lower urinary tract symptoms; F03.90 Unspecified dementia, unspecified severity, without behavioral disturbance, psychotic disturbance, mood disturbance, and anxiety; D63.8 Anemia in other chronic diseases classified elsewhere; D75.839 Thrombocytosis, unspecified; E78.5 Hyperlipidemia, unspecified; E88.09 Other disorders of plasma-protein metabolism, not elsewhere classified; Y95 Nosocomial condition; Z79.4 Long term (current) use of insulin; Z79.84 Long term (current) use of oral hypoglycemic drugs; Z79.02 Long term (current) use of antithrombotics/antiplatelets; Z79.01 Long term (current) use of anticoagulants; E07.9 Disorder of thyroid, unspecified
CPT/HCPCS: 36415; 71045-TC; 71250-TC; 80048-TC; 80053-TC; 82728-TC; 82962-TC; 83540-TC; 83735-TC; 83880; 83935-TC; 84100-TC; 84300-TC; 84439-TC; 84443-TC; 84550-TC; 85025-TC; 85378-TC; 85730-TC; 86140-TC; 86850-TC; 87081-TC; 87102-TC; 88108-TC; 88305-TC; 88312-TC; 89051-TC; 94760-TC; 94762-TC; 94799-TC; A4223; A6403; C9113; G0378; J1815; J1940; J2270; J2543; J3475; J3490; J7030; J7050; J7060

== ENCOUNTER 2023-09-06 14:00 | Inpatient (IN) | payer MEDICARE, OTHER ==
[~2023-09-06] VITALS: Ht 172.7 cm; Wt 55.3 kg
[~2023-09-06 14:00] MED LIST changes: +CHOL100043 PO; -DOXY100C2 PO; +DOXY100T2 PO; +GLUC1KIT IM; -HONE44PA TP; +LEVO250T59 PO; -LEVO500T90 PO; +MANUKA HONEY TP; -PIOG15TA8 PO; +POVI3780 TP; -POVI480S2 TP; -PROM12.513 PO; -VITS42.53 TP
[2023-09-06] MEDS ORDERED: DEXTROSE 50%-WATER 50 ML DISP.SYRIN ONE (14:35)
[2023-09-06] MEDS: DEXTROSE 50%-WATER 50 ML DISP.SYRIN IVP ONE (14:43)
[2023-09-06 14:48] LABS: BASOPHILS # (AUTO) 0.1 K/uL (0.0-0.2); BASOPHILS % (AUTO) 0.5 % (0.0-2.0); EOSINOPHILS # (AUTO) 0.5 K/uL (0.0-0.7); EOSINOPHILS % (AUTO) 4.5 % (0.0-6.0); HEMATOCRIT 28 % (39-51); HEMOGLOBIN 9.7 g/dL (13.5-17.5); LYMPHOCYTES # (AUTO) 2.7 K/uL (0.8-4.8); LYMPHOCYTES % (AUTO) 25.2 % (20.0-44.0); MEAN CORPUSCULAR HEMOGLOBIN 31 PG (26.0-33.0); MEAN CORPUSCULAR HGB CONC 34 g/dl (31.0-36.0); MEAN CORPUSCULAR VOLUME 90 fL (80-96); MONOCYTES # (AUTO) 0.8 K/uL (0.1-1.30); MONOCYTES % (AUTO) 7.7 % (2.0-12.0); NEUTROPHILS # (AUTO) 6.5 K/uL (1.8-8.9); NEUTROPHILS % (AUTO) 62.1 % (43.0-81.0); PLATELET COUNT (AUTO) 405 K/uL (150-450); RED BLOOD CELL COUNT(AUTO) 3.15 MIL/uL (4.5-6.0); RED CELL DISTRIBUTION WIDTH 15.2 % (11.5-15.0); WHITE BLOOD COUNT (AUTO) 10.5 K/uL (4.3-11.0)
[2023-09-06 14:59] LABS: CALCIUM, SERUM 8.8 mg/dL (8.5-10.1); CARBON DIOXIDE 30 mmol/L (21-32); CHLORIDE 104 mmol/L (98-107); CREATININE 1.2 mg/dL (0.6-1.3); GLUCOSE 52 mg/dL (74-106); POTASSIUM 3.9 mmol/L (3.5-5.1); SODIUM SERUM 141 mmol/L (136-145); UREA NITROGEN, BLOOD 40 mg/dL (7-18)
[2023-09-06] MEDS: IV NS 0.9% 500 ML BAG IV ONE ×2 (15:05→18:57)
[2023-09-06] MEDS ORDERED: NUTR1PAC14 PO (15:11)
[2023-09-06] MEDS ORDERED: AMIN887L7 PO (15:11)
[2023-09-06] MEDS ORDERED: INSU100V39 SQ (15:11)
[2023-09-06] MEDS ORDERED: DONE5TAB34 PO (15:11)
[2023-09-06] MEDS ORDERED: MAGN400O6 PO (15:11)
[2023-09-06 15:13] LABS: ALANINE AMINOTRANSFERASE 16 U/L (12-78); ALBUMIN 2.4 g/dL (3.4-5.0); ALKALINE PHOSPHATASE 144 U/L (46-116); ASPARTATE AMINOTRANSFERASE 15 U/L (15-37); BILIRUBIN,DIRECT 0.1 mg/dL (0.0-0.2); BILIRUBIN,TOTAL 0.3 mg/dL (0.2-1.0); LACTIC ACID 2.1 mmol/L (0.4-2.0); NT-PRO BNP 660 pg/mL (0-125); TOTAL PROTEIN, SERUM 6.7 g/dL (6.4-8.2)
[2023-09-06 15:15] LABS: INR 1.08 (0.91-1.10); PARTIAL THROMBOPLASTIN TIME 34.7 SEC (24.3-34.3); PROTHROMBIN TIME 11.4 SECS (9.2-11.1)
[2023-09-06 15:18] LABS: MAGNESIUM 2.2 mg/dL (1.8-2.4); PHOSPHORUS 4.5 mg/dL (2.5-4.9)
[2023-09-06 15:37] LABS: APPEARANCE,URINE CLEAR (CLEAR); BILIRUBIN,URINE NEGATIVE (NEGATIVE); BLOOD, URINE NEGATIVE Ery/uL (NEGATIVE); COLOR,URINE YELLOW (YELLOW); KETONES,URINE NEGATIVE (NEGATIVE); LEUKOCYTE ESTERASE ,URINE NEGATIVE (NEGATIVE); NITRITE, URINE NEGATIVE (NEGATIVE); PH,URINE 5.5 (5.0-8.0); PROTEIN,URINE NEGATIVE (NEGATIVE); UGLUCOSE NEGATIVE (NEGATIVE); UROBILINOGEN,URINE 0.2 EU/dL (0.2)
[2023-09-06] MEDS ORDERED: ACETAMINOPHEN 325 MG TABLET PO PRN (17:00)
[2023-09-06] MEDS ORDERED: ONDANSETRON HCL/PF 4 MG/2 ML VIAL IVP PRN (17:30)
[2023-09-06] MEDS ORDERED: MAG HYDROX/AL HYDROX/SIMETH 30 ML UDC PO PRN (17:30)
[2023-09-06] MEDS ORDERED: Z GUARD REMEDY 4 OZ OINT TP PRN (17:30)
[2023-09-06] MEDS ORDERED: MAGNESIUM HYDROXIDE 30 ML UDC PO PRN (17:30)
[2023-09-06] MEDS: TRAMADOL HCL 50 MG TABLET PO SCH (18:57)
[2023-09-06] MEDS: APIXABAN 5 MG TABLET PO SCH (19:00)
[2023-09-06 20:24] VITALS: BP 105/55; TEMP 97.3; O2SAT 100
[2023-09-06] MEDS: SENNOSIDES 8.6 MG TABLET PO SCH (21:32)
[2023-09-06] MEDS: IV NS 0.9% 1,000 ML IV PRN (22:11)
[2023-09-07 07:00] VITALS: BP 128/78; TEMP 98.4; O2SAT 97
[2023-09-07] MEDS: ASPIRIN 81 MG TAB.CHEW PO SCH (08:26)
[2023-09-07] MEDS: AMLODIPINE BESYLATE 5 MG TABLET PO SCH (08:31)
[2023-09-07] MEDS: CLOPIDOGREL BISULFATE 75 MG TABLET PO SCH (08:35)
[2023-09-07 12:00] VITALS: BP 103/56; TEMP 97.9; O2SAT 98
[2023-09-07 16:00] VITALS: BP 119/55; TEMP 98.4; O2SAT 94
[2023-09-07 18:20] LABS: BASOPHILS # (AUTO) 0.1 K/uL (0.0-0.2); BASOPHILS % (AUTO) 0.6 % (0.0-2.0); EOSINOPHILS # (AUTO) 0.3 K/uL (0.0-0.7); EOSINOPHILS % (AUTO) 2.6 % (0.0-6.0); HEMATOCRIT 27 % (39-51); HEMOGLOBIN 9.2 g/dL (13.5-17.5); LYMPHOCYTES # (AUTO) 2.2 K/uL (0.8-4.8); LYMPHOCYTES % (AUTO) 22.6 % (20.0-44.0); MEAN CORPUSCULAR HEMOGLOBIN 30 PG (26.0-33.0); MEAN CORPUSCULAR HGB CONC 34 g/dl (31.0-36.0); MEAN CORPUSCULAR VOLUME 90 fL (80-96); MONOCYTES # (AUTO) 0.7 K/uL (0.1-1.30); MONOCYTES % (AUTO) 6.8 % (2.0-12.0); NEUTROPHILS # (AUTO) 6.6 K/uL (1.8-8.9); NEUTROPHILS % (AUTO) 67.4 % (43.0-81.0); PLATELET COUNT (AUTO) 342 K/uL (150-450); RED BLOOD CELL COUNT(AUTO) 3.02 MIL/uL (4.5-6.0); RED CELL DISTRIBUTION WIDTH 15.1 % (11.5-15.0); WHITE BLOOD COUNT (AUTO) 9.8 K/uL (4.3-11.0)
[2023-09-07 19:30] LABS: CALCIUM, SERUM 8.9 mg/dL (8.5-10.1); CARBON DIOXIDE 22 mmol/L (21-32); CHLORIDE 107 mmol/L (98-107); CREATININE 0.8 mg/dL (0.6-1.3); GLUCOSE 165 mg/dL (74-106); MAGNESIUM 2.1 mg/dL (1.8-2.4); PHOSPHORUS 3.3 mg/dL (2.5-4.9); POTASSIUM 4.6 mmol/L (3.5-5.1); SODIUM SERUM 143 mmol/L (136-145); UREA NITROGEN, BLOOD 34 mg/dL (7-18)
[2023-09-07 20:00] VITALS: BP 127/49; TEMP 98.6; O2SAT 98
[2023-09-07 20:35] VITALS: BP 127/49; TEMP 98.6; O2SAT 98
[2023-09-07] MEDS: ACETAMINOPHEN 325 MG TABLET PO PRN (21:57)
[2023-09-08] VITALS (7 sets, daily range): BP systolic 130–146; BP diastolic 50–69; TEMP 97.9–98.4; O2SAT 97–100
[2023-09-08 07:44] LABS: BASOPHILS % (AUTO) 0.5 % (0.0-2.0); EOSINOPHILS # (AUTO) 0.4 K/uL (0.0-0.7); EOSINOPHILS % (AUTO) 4.6 % (0.0-6.0); HEMATOCRIT 28 % (39-51); HEMOGLOBIN 9.4 g/dL (13.5-17.5); LYMPHOCYTES # (AUTO) 2.6 K/uL (0.8-4.8); LYMPHOCYTES % (AUTO) 29.4 % (20.0-44.0); MEAN CORPUSCULAR HEMOGLOBIN 31 PG (26.0-33.0); MEAN CORPUSCULAR HGB CONC 34 g/dl (31.0-36.0); MEAN CORPUSCULAR VOLUME 91 fL (80-96); MONOCYTES # (AUTO) 0.7 K/uL (0.1-1.30); MONOCYTES % (AUTO) 8.1 % (2.0-12.0); NEUTROPHILS % (AUTO) 57.4 % (43.0-81.0); PLATELET COUNT (AUTO) 351 K/uL (150-450); RED BLOOD CELL COUNT(AUTO) 3.08 MIL/uL (4.5-6.0); RED CELL DISTRIBUTION WIDTH 14.9 % (11.5-15.0); WHITE BLOOD COUNT (AUTO) 8.7 K/uL (4.3-11.0)
[2023-09-08 08:00] LABS: CREATINE KINASE, TOTAL 36 U/L (39-308)
[2023-09-08 08:13] LABS: ALANINE AMINOTRANSFERASE 14 U/L (12-78); ALBUMIN 2.1 g/dL (3.4-5.0); ALKALINE PHOSPHATASE 110 U/L (46-116); ASPARTATE AMINOTRANSFERASE 14 U/L (15-37); BILIRUBIN,TOTAL 0.4 mg/dL (0.2-1.0); CALCIUM, SERUM 8.4 mg/dL (8.5-10.1); CARBON DIOXIDE 24 mmol/L (21-32); CHLORIDE 109 mmol/L (98-107); CREATININE 0.6 mg/dL (0.6-1.3); GLUCOSE 84 mg/dL (74-106); POTASSIUM 3.8 mmol/L (3.5-5.1); SODIUM SERUM 142 mmol/L (136-145); TOTAL PROTEIN, SERUM 6.1 g/dL (6.4-8.2); UREA NITROGEN, BLOOD 22 mg/dL (7-18)
[2023-09-08] MEDS ORDERED: MORPHINE SULFATE INJ 2 MG/ML DISP.SYRIN IV PRN (16:30)
[2023-09-08] MEDS: GABAPENTIN 300 MG CAPSULE PO SCH (17:20)
[2023-09-08] MEDS: ENSURE ENLIVE 237 ML LIQUID (VANILLA) PO SCH (17:20)
[2023-09-09 06:41] LABS: BASOPHILS % (AUTO) 0.5 % (0.0-2.0); EOSINOPHILS # (AUTO) 0.5 K/uL (0.0-0.7); EOSINOPHILS % (AUTO) 5.2 % (0.0-6.0); HEMATOCRIT 26 % (39-51); HEMOGLOBIN 9.1 g/dL (13.5-17.5); LYMPHOCYTES # (AUTO) 2.2 K/uL (0.8-4.8); LYMPHOCYTES % (AUTO) 24.6 % (20.0-44.0); MEAN CORPUSCULAR HEMOGLOBIN 31 PG (26.0-33.0); MEAN CORPUSCULAR HGB CONC 34 g/dl (31.0-36.0); MEAN CORPUSCULAR VOLUME 90 fL (80-96); MONOCYTES # (AUTO) 0.8 K/uL (0.1-1.30); MONOCYTES % (AUTO) 8.7 % (2.0-12.0); NEUTROPHILS # (AUTO) 5.5 K/uL (1.8-8.9); PLATELET COUNT (AUTO) 300 K/uL (150-450); RED BLOOD CELL COUNT(AUTO) 2.93 MIL/uL (4.5-6.0)
[2023-09-09 07:05] LABS: CALCIUM, SERUM 8.2 mg/dL (8.5-10.1); CARBON DIOXIDE 28 mmol/L (21-32); CHLORIDE 111 mmol/L (98-107); CREATININE 0.7 mg/dL (0.6-1.3); GLUCOSE 156 mg/dL (74-106); POTASSIUM 4.2 mmol/L (3.5-5.1); SODIUM SERUM 141 mmol/L (136-145); UREA NITROGEN, BLOOD 23 mg/dL (7-18)
[2023-09-09 08:36] VITALS: BP 125/50; TEMP 98.1; O2SAT 100
[2023-09-09 09:09] LABS: *SPE A/G RATIO 0.9 (0.7-1.7); *SPE ALBUMIN 2.6 g/dL (2.9-4.4); *SPE ALPHA-1-GLOBULIN 0.2 g/dL (0.0-0.4); *SPE ALPHA-2-GLOBULIN 0.6 g/dL (0.4-1.0); *SPE M-SPIKE Not Observed g/dL (Not Observed); *SPE PROTEIN TOTAL 5.6 g/dL (6.0-8.5); *SPEGAMMA GLOBULIN 1.3 g/dL (0.4-1.8)
[2023-09-09 13:09] LABS: PTH, INTACT 11 pg/mL (15-65)
== END 2023-09-09 15:30 | DRG 682 ==
LOC: ER 14:07 → TELE 17:15 → MED 09-08 13:51
PROVIDERS: ADMIT Internal Medicine; ATTEND Internal Medicine
DX: N17.0 Acute kidney failure with tubular necrosis (principal); E43 Unspecified severe protein-calorie malnutrition; G93.41 Metabolic encephalopathy; E11.52 Type 2 diabetes mellitus with diabetic peripheral angiopathy with gangrene; E87.20 Acidosis, unspecified; J90 Pleural effusion, not elsewhere classified; E86.0 Dehydration; I11.0 Hypertensive heart disease with heart failure; I50.9 Heart failure, unspecified; I25.10 Atherosclerotic heart disease of native coronary artery without angina pectoris; F03.90 Unspecified dementia, unspecified severity, without behavioral disturbance, psychotic disturbance, mood disturbance, and anxiety; E78.5 Hyperlipidemia, unspecified; E11.621 Type 2 diabetes mellitus with foot ulcer; L97.519 Non-pressure chronic ulcer of other part of right foot with unspecified severity; R13.10 Dysphagia, unspecified; D64.9 Anemia, unspecified; Z79.4 Long term (current) use of insulin; Z79.899 Other long term (current) drug therapy; Z79.02 Long term (current) use of antithrombotics/antiplatelets; Z79.82 Long term (current) use of aspirin; Z79.01 Long term (current) use of anticoagulants; E88.09 Other disorders of plasma-protein metabolism, not elsewhere classified; N40.0 Benign prostatic hyperplasia without lower urinary tract symptoms; M19.90 Unspecified osteoarthritis, unspecified site; I48.0 Paroxysmal atrial fibrillation; N13.9 Obstructive and reflux uropathy, unspecified; K82.8 Other specified diseases of gallbladder
CPT/HCPCS: 36415; 71045-TC; 76770-TC; 80048-TC; 80053-TC; 80076-TC; 82550-TC; 82962-TC; 83605-TC; 83735-TC; 83880; 83970; 84100-TC; 84155; 84165; 84484-TC; 85025-TC; 85730-TC; 87040-TC; 87086-TC; A4223; G0378; J7030; J7040

== ENCOUNTER 2024-01-20 17:26 | Inpatient (IN) | payer MEDICARE, OTHER ==
[~2024-01-20] VITALS: Ht 182.9 cm; Wt 57.2 kg
[~2024-01-20 17:26] MED LIST changes: +AMIN887L7 PO; -ARGI1POW13 PO; +DONE5TAB34 PO; -DOXY100T2 PO; +INSU100V39 SQ; -LEVO250T59 PO; +MAGN400O6 PO; -MANUKA HONEY TP; +NUTR1PAC14 PO; -POVI3780 TP; -ZINC220C6 PO
[2024-01-20] MEDS: CEFEPIME 1 GM in IV D5W 50 ML IV ONE (19:00)
[2024-01-20 19:10] VITALS: O2SAT 97
[2024-01-20 19:17] LABS: BASOPHILS # (AUTO) 0.1 K/uL (0.0-0.2); BASOPHILS % (AUTO) 0.6 % (0.0-2.0); EOSINOPHILS # (AUTO) 0.4 K/uL (0.0-0.7); EOSINOPHILS % (AUTO) 3.8 % (0.0-6.0); HEMATOCRIT 31 % (39-51); HEMOGLOBIN 10.3 g/dL (13.5-17.5); LYMPHOCYTES # (AUTO) 2.1 K/uL (0.8-4.8); LYMPHOCYTES % (AUTO) 19.9 % (20.0-44.0); MEAN CORPUSCULAR HEMOGLOBIN 30 PG (26.0-33.0); MEAN CORPUSCULAR HGB CONC 33 g/dl (31.0-36.0); MEAN CORPUSCULAR VOLUME 91 fL (80-96); MONOCYTES # (AUTO) 0.8 K/uL (0.1-1.30); MONOCYTES % (AUTO) 7.4 % (2.0-12.0); NEUTROPHILS # (AUTO) 7.1 K/uL (1.8-8.9); NEUTROPHILS % (AUTO) 68.3 % (43.0-81.0); PLATELET COUNT (AUTO) 492 K/uL (150-450); RED BLOOD CELL COUNT(AUTO) 3.44 MIL/uL (4.5-6.0); RED CELL DISTRIBUTION WIDTH 14.8 % (11.5-15.0); WHITE BLOOD COUNT (AUTO) 10.5 K/uL (4.3-11.0)
[2024-01-20] MEDS: IV NS 0.9% 1,000 ML BAG IV ONE (19:17)
[2024-01-20 19:27] LABS: CALCIUM, SERUM 9.7 mg/dL (8.5-10.1); CARBON DIOXIDE 25 mmol/L (21-32); CHLORIDE 100 mmol/L (98-107); CREATININE 1.6 mg/dL (0.6-1.3); GLUCOSE 116 mg/dL (74-106); POTASSIUM 5.4 mmol/L (3.5-5.1); SODIUM SERUM 134 mmol/L (136-145); UREA NITROGEN, BLOOD 43 mg/dL (7-18)
[2024-01-20 19:34] LABS: ALANINE AMINOTRANSFERASE 24 U/L (12-78); ALKALINE PHOSPHATASE 152 U/L (46-116); ASPARTATE AMINOTRANSFERASE 25 U/L (15-37); BILIRUBIN,DIRECT 0.1 mg/dL (0.0-0.2); BILIRUBIN,TOTAL 0.2 mg/dL (0.2-1.0); TOTAL PROTEIN, SERUM 8.2 g/dL (6.4-8.2)
[2024-01-20 19:36] LABS: INR 1.04 (0.91-1.10); PARTIAL THROMBOPLASTIN TIME 29.6 SEC (24.3-34.3); PROTHROMBIN TIME 10.7 SECS (9.2-11.1)
[2024-01-20 19:49] LABS: LACTIC ACID 3.1 mmol/L (0.4-2.0)
[2024-01-20] MEDS: VANCOMYCIN 1 GM in IV D5W 250 ML IV ONE (19:52)
[2024-01-20] MEDS ORDERED: SODIUM ZIRCONIUM CYCLOSILICATE 5 GM POWD.PACK ONE (19:57)
[2024-01-20] MEDS: SODIUM ZIRCONIUM CYCLOSILICATE 5 GM POWD.PACK PO ONE (20:00)
[2024-01-20 20:45] VITALS: BP 158/67; TEMP 97.5; O2SAT 99
[2024-01-20] MEDS ORDERED: ONDANSETRON HCL/PF 4 MG/2 ML VIAL IVP PRN (21:00)
[2024-01-20] MEDS ORDERED: MAG HYDROX/AL HYDROX/SIMETH 30 ML UDC PO PRN (21:00)
[2024-01-20] MEDS ORDERED: MAGNESIUM HYDROXIDE 30 ML UDC PO PRN (21:00)
[2024-01-20] MEDS ORDERED: Z GUARD REMEDY 4 OZ OINT TP PRN (21:00)
[2024-01-20] MEDS: BLOOD SUGAR DIAGNOSTIC 1 EACH STRIP IN SCH (21:55)
[2024-01-20] MEDS: IV NS 0.9% 1,000 ML IV PRN (21:58)
[2024-01-20] MEDS ORDERED: INSULIN REGULAR, HUMAN 100 UNIT/ML 10 ML VIAL SQ SCH (22:00)
[2024-01-20] MEDS: INSULIN REGULAR, HUMAN 100 UNIT/ML 3 ML VIAL SQ PRN (22:20)
[2024-01-20] MEDS ORDERED: DEXTROSE 50%-WATER 50 ML DISP.SYRIN IV PRN (22:30)
[2024-01-21] MEDS: BLOOD SUGAR DIAGNOSTIC 1 EACH STRIP IN SCH (06:48)
[2024-01-21 06:50] LABS: BASOPHILS % (AUTO) 0.5 % (0.0-2.0); EOSINOPHILS # (AUTO) 0.4 K/uL (0.0-0.7); EOSINOPHILS % (AUTO) 4.9 % (0.0-6.0); HEMATOCRIT 27 % (39-51); HEMOGLOBIN 9.3 g/dL (13.5-17.5); LYMPHOCYTES # (AUTO) 1.4 K/uL (0.8-4.8); LYMPHOCYTES % (AUTO) 17.5 % (20.0-44.0); MEAN CORPUSCULAR HEMOGLOBIN 31 PG (26.0-33.0); MEAN CORPUSCULAR HGB CONC 35 g/dl (31.0-36.0); MEAN CORPUSCULAR VOLUME 88 fL (80-96); MONOCYTES # (AUTO) 0.7 K/uL (0.1-1.30); MONOCYTES % (AUTO) 8.3 % (2.0-12.0); NEUTROPHILS # (AUTO) 5.5 K/uL (1.8-8.9); NEUTROPHILS % (AUTO) 68.8 % (43.0-81.0); PLATELET COUNT (AUTO) 392 K/uL (150-450); RED BLOOD CELL COUNT(AUTO) 3.04 MIL/uL (4.5-6.0); RED CELL DISTRIBUTION WIDTH 14.3 % (11.5-15.0)
[2024-01-21 06:57] LABS: ALBUMIN 2.4 g/dL (3.4-5.0); CALCIUM, SERUM 8.3 mg/dL (8.5-10.1); CREATININE 0.9 mg/dL (0.6-1.3); MAGNESIUM 1.7 mg/dL (1.8-2.4); PHOSPHORUS 3.1 mg/dL (2.5-4.9); POTASSIUM 4.5 mmol/L (3.5-5.1)
[2024-01-21 07:00] VITALS: BP 142/66; TEMP 97.5; O2SAT 100
[2024-01-21 07:08] LABS: LACTIC ACID 0.9 mmol/L (0.4-2.0)
[2024-01-21] MEDS ORDERED: PANT20TA2 PO (08:06)
[2024-01-21] MEDS ORDERED: SULF1TAB48 PO (08:06)
[2024-01-21] MEDS: PANTOPRAZOLE 40 MG TABLET.DR PO SCH (08:09)
[2024-01-21] MEDS: CEFEPIME 1 GM in IV D5W 50 ML IV SCH (08:47)
[2024-01-21] MEDS: MAGNESIUM OXIDE 400 MG TABLET PO ONE (10:21)
[2024-01-21] MEDS: VANCOMYCIN 750 MG in IV D5W 250 ML IV SCH (14:28)
[2024-01-21] MEDS: ACETAMINOPHEN 325 MG TABLET PO PRN (15:22)
[2024-01-21 16:00] VITALS: BP 157/74; TEMP 97.9; O2SAT 100
[2024-01-21] MEDS: VANCOMYCIN 1 GM in IV D5W 250ml IV SCH (19:37)
[2024-01-21 20:00] VITALS: BP 139/95; TEMP 98.6; O2SAT 100
[2024-01-21] MEDS ORDERED: BLOOD SUGAR DIAGNOSTIC 1 EACH STRIP IN SCH (22:00)
[2024-01-22 07:43] LABS: ALANINE AMINOTRANSFERASE 20 U/L (12-78); ALBUMIN 2.9 g/dL (3.4-5.0); ALKALINE PHOSPHATASE 161 U/L (46-116); ASPARTATE AMINOTRANSFERASE 22 U/L (15-37); BILIRUBIN,TOTAL 0.7 mg/dL (0.2-1.0); CARBON DIOXIDE 23 mmol/L (21-32); CHLORIDE 101 mmol/L (98-107); CREATININE 0.8 mg/dL (0.6-1.3); GLUCOSE 201 mg/dL (74-106); MAGNESIUM 1.9 mg/dL (1.8-2.4); PHOSPHORUS 2.1 mg/dL (2.5-4.9); POTASSIUM 4.2 mmol/L (3.5-5.1); SODIUM SERUM 134 mmol/L (136-145); TOTAL PROTEIN, SERUM 7.9 g/dL (6.4-8.2); UREA NITROGEN, BLOOD 14 mg/dL (7-18)
[2024-01-22 07:48] LABS: BASOPHILS # (AUTO) 0.1 K/uL (0.0-0.2); BASOPHILS % (AUTO) 0.6 % (0.0-2.0); EOSINOPHILS # (AUTO) 0.3 K/uL (0.0-0.7); EOSINOPHILS % (AUTO) 2.4 % (0.0-6.0); HEMATOCRIT 28 % (39-51); HEMOGLOBIN 9.7 g/dL (13.5-17.5); LYMPHOCYTES # (AUTO) 1.7 K/uL (0.8-4.8); LYMPHOCYTES % (AUTO) 15.9 % (20.0-44.0); MEAN CORPUSCULAR HEMOGLOBIN 31 PG (26.0-33.0); MEAN CORPUSCULAR HGB CONC 34 g/dl (31.0-36.0); MEAN CORPUSCULAR VOLUME 89 fL (80-96); MONOCYTES # (AUTO) 0.7 K/uL (0.1-1.30); MONOCYTES % (AUTO) 6.6 % (2.0-12.0); NEUTROPHILS # (AUTO) 8.1 K/uL (1.8-8.9); NEUTROPHILS % (AUTO) 74.5 % (43.0-81.0); PLATELET COUNT (AUTO) 489 K/uL (150-450); RED BLOOD CELL COUNT(AUTO) 3.17 MIL/uL (4.5-6.0); RED CELL DISTRIBUTION WIDTH 14.2 % (11.5-15.0); WHITE BLOOD COUNT (AUTO) 10.9 K/uL (4.3-11.0)
[2024-01-22 07:52] LABS: CREATINE KINASE, TOTAL 63 U/L (39-308)
[2024-01-22] MEDS: GABAPENTIN 300 MG CAPSULE PO SCH (08:36)
[2024-01-22] MEDS: ASPIRIN 81 MG TAB.CHEW PO SCH (08:36)
[2024-01-22] MEDS: CARVEDILOL 6.25 MG TABLET PO SCH (08:36)
[2024-01-22] MEDS: AMLODIPINE BESYLATE 5 MG TABLET PO SCH (08:37)
[2024-01-22] MEDS: hydrALAZINE HCL 50 MG TABLET PO SCH (08:37)
[2024-01-22] MEDS: LOSARTAN POTASSIUM 50 MG TABLET PO SCH (08:37)
[2024-01-22] MEDS: APIXABAN 2.5 MG TABLET PO SCH (08:39)
[2024-01-22] MEDS: GLUCERNA SHAKE 237 ML CAN PO SCH (12:35)
[2024-01-22 16:00] VITALS: BP 159/60; TEMP 97.7; O2SAT 99
[2024-01-22] MEDS ORDERED: ENOX40DI SQ (16:27)
[2024-01-22] MEDS ORDERED: DOXY100T2 PO (16:27)
[2024-01-22] MEDS: K PHOS NEUTRAL 250 MG TABLET PO ONE (16:48)
[2024-01-22 20:00] VITALS: BP 137/61; TEMP 97.9; O2SAT 100
[2024-01-22] MEDS: VANCOMYCIN 750 MG in IV D5W 250 ML IV SCH (21:47)
[2024-01-22] MEDS: ATORVASTATIN 40 MG TABLET PO SCH (22:05)
[2024-01-22] MEDS: DONEPEZIL 5 MG TABLET PO SCH (22:05)
[2024-01-23 08:00] VITALS: BP 143/88; TEMP 98.1; O2SAT 100
[2024-01-23 08:03] LABS: CHLORIDE 108 mmol/L (98-107); CREATININE 0.6 mg/dL (0.6-1.3); GLUCOSE 152 mg/dL (74-106); PHOSPHORUS 2.2 mg/dL (2.5-4.9); SODIUM SERUM 138 mmol/L (136-145); UREA NITROGEN, BLOOD 10 mg/dL (7-18)
[2024-01-23 08:07] LABS: CARBON DIOXIDE 21 mmol/L (21-32)
[2024-01-23 08:07] LABS: PTH, INTACT 13 pg/mL (15-65)
[2024-01-23 12:11] LABS: *SPE A/G RATIO 0.7 (0.7-1.7); *SPE ALPHA-1-GLOBULIN 0.3 g/dL (0.0-0.4); *SPE ALPHA-2-GLOBULIN 0.9 g/dL (0.4-1.0); *SPE BETA GLOBULIN 1.3 g/dL (0.7-1.3); *SPE GLOBULIN, TOTAL 4.2 g/dL (2.2-3.9); *SPE M-SPIKE Not Observed g/dL (Not Observed); *SPE PROTEIN TOTAL 7.2 g/dL (6.0-8.5); *SPEGAMMA GLOBULIN 1.7 g/dL (0.4-1.8)
[2024-01-23 13:50] VITALS: BP 123/73
[2024-01-23] MEDS ORDERED: K PHOS NEUTRAL 250 MG TABLET PO ONE (15:30)
== END 2024-01-23 13:50 | DRG 299 ==
LOC: ER 17:28 → MED 20:25
PROVIDERS: ADMIT Nurse Practitioner Family; ATTEND Nurse Practitioner Acute Care
DX: E11.52 Type 2 diabetes mellitus with diabetic peripheral angiopathy with gangrene (principal); N17.0 Acute kidney failure with tubular necrosis; Z68.1 Body mass index [BMI] 19.9 or less, adult; E87.1 Hypo-osmolality and hyponatremia; E46 Unspecified protein-calorie malnutrition; I13.0 Hypertensive heart and chronic kidney disease with heart failure and stage 1 through stage 4 chronic kidney disease, or unspecified chronic kidney disease; E87.20 Acidosis, unspecified; L03.116 Cellulitis of left lower limb; I70.268 Atherosclerosis of native arteries of extremities with gangrene, other extremity; M86.172 Other acute osteomyelitis, left ankle and foot; M86.171 Other acute osteomyelitis, right ankle and foot; E11.40 Type 2 diabetes mellitus with diabetic neuropathy, unspecified; F03.90 Unspecified dementia, unspecified severity, without behavioral disturbance, psychotic disturbance, mood disturbance, and anxiety; E88.09 Other disorders of plasma-protein metabolism, not elsewhere classified; K21.9 Gastro-esophageal reflux disease without esophagitis; N18.9 Chronic kidney disease, unspecified; N40.0 Benign prostatic hyperplasia without lower urinary tract symptoms; R13.10 Dysphagia, unspecified; I50.9 Heart failure, unspecified; I48.91 Unspecified atrial fibrillation; I25.10 Atherosclerotic heart disease of native coronary artery without angina pectoris; Z79.4 Long term (current) use of insulin; Z79.02 Long term (current) use of antithrombotics/antiplatelets; Z79.82 Long term (current) use of aspirin; Z79.01 Long term (current) use of anticoagulants; Z79.899 Other long term (current) drug therapy; M89.8X9 Other specified disorders of bone, unspecified site; E78.00 Pure hypercholesterolemia, unspecified; D63.8 Anemia in other chronic diseases classified elsewhere; E11.22 Type 2 diabetes mellitus with diabetic chronic kidney disease; E11.42 Type 2 diabetes mellitus with diabetic polyneuropathy; E11.621 Type 2 diabetes mellitus with foot ulcer; E83.42 Hypomagnesemia; E86.9 Volume depletion, unspecified; E87.5 Hyperkalemia; Z79.84 Long term (current) use of oral hypoglycemic drugs; E11.69 Type 2 diabetes mellitus with other specified complication; L97.519 Non-pressure chronic ulcer of other part of right foot with unspecified severity; L98.494 Non-pressure chronic ulcer of skin of other sites with necrosis of bone
CPT/HCPCS: 36415; 71045-TC; 73718-TC; 76770-TC; 80048-TC; 80053-TC; 80076-TC; 80202-TC; 82040-TC; 82550-TC; 82962-TC; 83605-TC; 83735-TC; 83970; 84100-TC; 84155; 84165; 84484-TC; 85025-TC; 85652-TC; 85730-TC; 86140-TC; 87040-TC; 87081-TC; A4223; A6403; G0378; J0692; J1815; J3370; J3371; J7030; J7040; J7060

== ENCOUNTER 2024-01-27 16:02 | Inpatient (IN) | payer MEDICARE, MEDICAID ==
[~2024-01-27] VITALS: Ht 165.1 cm; Wt 59.0 kg
[~2024-01-27 16:02] MED LIST changes: -APIX5TAB PO; +DOXY100T2 PO; +ENOX40DI SQ; +ENOX60DI8 SQ; -OMEP20CA15 PO; +PANT20TA2 PO; +SULF1TAB48 PO
[2024-01-27] MEDS: IV NS 0.9% 1,000 ML BAG IV ONE (16:42)
[2024-01-27 17:18] LABS: BASOPHILS # (AUTO) 0.1 K/uL (0.0-0.2); BASOPHILS % (AUTO) 0.5 % (0.0-2.0); EOSINOPHILS # (AUTO) 0.4 K/uL (0.0-0.7); HEMATOCRIT 26 % (39-51); HEMOGLOBIN 8.6 g/dL (13.5-17.5); LYMPHOCYTES # (AUTO) 2.3 K/uL (0.8-4.8); LYMPHOCYTES % (AUTO) 17.3 % (20.0-44.0); MEAN CORPUSCULAR HEMOGLOBIN 30 PG (26.0-33.0); MEAN CORPUSCULAR HGB CONC 33 g/dl (31.0-36.0); MEAN CORPUSCULAR VOLUME 90 fL (80-96); MONOCYTES # (AUTO) 0.9 K/uL (0.1-1.30); MONOCYTES % (AUTO) 6.8 % (2.0-12.0); NEUTROPHILS # (AUTO) 9.5 K/uL (1.8-8.9); NEUTROPHILS % (AUTO) 72.4 % (43.0-81.0); PLATELET COUNT (AUTO) 390 K/uL (150-450); RED BLOOD CELL COUNT(AUTO) 2.89 MIL/uL (4.5-6.0); RED CELL DISTRIBUTION WIDTH 14.6 % (11.5-15.0); WHITE BLOOD COUNT (AUTO) 13.1 K/uL (4.3-11.0)
[2024-01-27 17:30] LABS: CALCIUM, SERUM 8.7 mg/dL (8.5-10.1); CARBON DIOXIDE 25 mmol/L (21-32); CHLORIDE 102 mmol/L (98-107); CREATININE 0.9 mg/dL (0.6-1.3); GLUCOSE 186 mg/dL (74-106); POTASSIUM 4.3 mmol/L (3.5-5.1); SODIUM SERUM 133 mmol/L (136-145); UREA NITROGEN, BLOOD 28 mg/dL (7-18)
[2024-01-27 17:35] LABS: ALANINE AMINOTRANSFERASE 17 U/L (12-78); ALBUMIN 2.4 g/dL (3.4-5.0); ALKALINE PHOSPHATASE 123 U/L (46-116); ASPARTATE AMINOTRANSFERASE 19 U/L (15-37); BILIRUBIN,DIRECT 0.1 mg/dL (0.0-0.2); BILIRUBIN,TOTAL 0.2 mg/dL (0.2-1.0); TOTAL PROTEIN, SERUM 6.5 g/dL (6.4-8.2)
[2024-01-27 17:40] LABS: LACTIC ACID 1.7 mmol/L (0.4-2.0)
[2024-01-27] MEDS ORDERED: OMEP20CA15 PO (17:40)
[2024-01-27] MEDS ORDERED: HYDR-4077 PO (17:40)
[2024-01-27 17:43] LABS: INR 1.06 (0.91-1.10); PARTIAL THROMBOPLASTIN TIME 29.1 SEC (24.3-34.3); PROTHROMBIN TIME 11.2 SECS (9.2-11.1)
[2024-01-27 19:06] LABS: APPEARANCE,URINE Clear (CLEAR); BILIRUBIN,URINE Negative (NEGATIVE); BLOOD, URINE Negative Ery/uL (NEGATIVE); COLOR,URINE YELLOW (YELLOW); KETONES,URINE Negative (NEGATIVE); LEUKOCYTE ESTERASE ,URINE Negative (NEGATIVE); NITRITE, URINE Negative (NEGATIVE); PROTEIN,URINE Negative (NEGATIVE); UGLUCOSE Negative (NEGATIVE); UROBILINOGEN,URINE 0.2 EU/dL (0.2)
[2024-01-27 19:48] VITALS: O2SAT 95
[2024-01-27] MEDS ORDERED: MAGNESIUM HYDROXIDE 30 ML UDC PO PRN (20:30)
[2024-01-27] MEDS ORDERED: MAG HYDROX/AL HYDROX/SIMETH 30 ML UDC PO PRN (20:30)
[2024-01-27] MEDS ORDERED: DEXTROSE 50%-WATER 50 ML DISP.SYRIN IV PRN (20:30)
[2024-01-27] MEDS ORDERED: ONDANSETRON HCL/PF 4 MG/2 ML VIAL IVP PRN (20:30)
[2024-01-27] MEDS ORDERED: NA PHOS,M-B/NA PHOS,DI-BA 1 EA ENEMA RC PRN (21:00)
[2024-01-27] MEDS ORDERED: BISACODYL SUPP (10 MG) 10 MG/SUPP.RECT SUPP.RECT RC PRN (21:00)
[2024-01-27] MEDS: SENNOSIDES 8.6 MG TABLET PO SCH (21:58)
[2024-01-27] MEDS: ATORVASTATIN 40 MG TABLET PO SCH (21:59)
[2024-01-27] MEDS: DONEPEZIL 5 MG TABLET PO SCH (21:59)
[2024-01-27] MEDS: LOSARTAN POTASSIUM 50 MG TABLET PO SCH (21:59)
[2024-01-27] MEDS: ACETAMINOPHEN 325 MG TABLET PO PRN (21:59)
[2024-01-27] MEDS: BLOOD SUGAR DIAGNOSTIC 1 EACH STRIP VI SCH (22:09)
[2024-01-27] MEDS: *INSULIN REGULAR(HUMULIN R)HUM 100 UNIT/ML VIAL SQ PRN (22:10)
[2024-01-28] MEDS ORDERED: DOXYCYCLINE 100 MG VIAL ONE (00:27)
[2024-01-28] MEDS: DOXYCYCLINE 100 MG in IV D5W 100 ML IV SCH (00:34)
[2024-01-28] MEDS: INSULIN REGULAR, HUMAN 100 UNIT/ML 3 ML VIAL SQ PRN (06:18)
[2024-01-28 06:57] LABS: BASOPHILS # (AUTO) 0.1 K/uL (0.0-0.2); BASOPHILS % (AUTO) 0.5 % (0.0-2.0); EOSINOPHILS # (AUTO) 0.3 K/uL (0.0-0.7); EOSINOPHILS % (AUTO) 2.9 % (0.0-6.0); HEMATOCRIT 24 % (39-51); HEMOGLOBIN 7.9 g/dL (13.5-17.5); LYMPHOCYTES # (AUTO) 2.2 K/uL (0.8-4.8); LYMPHOCYTES % (AUTO) 20.9 % (20.0-44.0); MEAN CORPUSCULAR HEMOGLOBIN 30 PG (26.0-33.0); MEAN CORPUSCULAR HGB CONC 34 g/dl (31.0-36.0); MEAN CORPUSCULAR VOLUME 89 fL (80-96); MONOCYTES # (AUTO) 0.7 K/uL (0.1-1.30); MONOCYTES % (AUTO) 6.7 % (2.0-12.0); NEUTROPHILS # (AUTO) 7.3 K/uL (1.8-8.9); PLATELET COUNT (AUTO) 366 K/uL (150-450); RED BLOOD CELL COUNT(AUTO) 2.65 MIL/uL (4.5-6.0); RED CELL DISTRIBUTION WIDTH 14.8 % (11.5-15.0); WHITE BLOOD COUNT (AUTO) 10.5 K/uL (4.3-11.0)
[2024-01-28 07:14] LABS: ERYTHROCYTE SEDIMENTATION RATE 22 MM/HR (0-20)
[2024-01-28 07:19] LABS: CALCIUM, SERUM 8.6 mg/dL (8.5-10.1); CREATININE 0.7 mg/dL (0.6-1.3); MAGNESIUM 1.5 mg/dL (1.8-2.4); PHOSPHORUS 2.8 mg/dL (2.5-4.9); POTASSIUM 3.8 mmol/L (3.5-5.1)
[2024-01-28 08:00] VITALS: BP 122/58; TEMP 98.6; O2SAT 99
[2024-01-28] MEDS: CHOLECALCIFEROL 1,000 UNIT TABLET (VIT D3) PO SCH (08:43)
[2024-01-28] MEDS: ASPIRIN 81 MG TAB.CHEW PO SCH (08:44)
[2024-01-28] MEDS: ASCORBIC ACID 500 MG TABLET PO SCH (08:44)
[2024-01-28] MEDS: CARVEDILOL 6.25 MG TABLET PO SCH (08:44)
[2024-01-28] MEDS: AMLODIPINE BESYLATE 5 MG TABLET PO SCH (08:46)
[2024-01-28] MEDS: POLYETHYLENE GLYCOL 3350 17 GM POWD.PACK PO SCH (08:49)
[2024-01-28] MEDS: POTASSIUM CHLORIDE 20 MEQ TAB.PRT.SR PO SCH (08:50)
[2024-01-28] MEDS: MULTIVIT W/MINERALS 1 TAB TABLET PO SCH (08:50)
[2024-01-28] MEDS: TRAMADOL HCL 50 MG TABLET PO SCH (08:50)
[2024-01-28] MEDS: GABAPENTIN 300 MG CAPSULE PO SCH (08:59)
[2024-01-28] MEDS: FERROUS SULFATE (325 MG) 325 MG/TAB TABLET PO SCH (08:59)
[2024-01-28] MEDS: DOCUSATE SODIUM 100 MG CAPSULE PO SCH (08:59)
[2024-01-28] MEDS: FUROSEMIDE 40 MG TABLET PO SCH (08:59)
[2024-01-28] MEDS: hydrALAZINE HCL 50 MG TABLET PO SCH (09:00)
[2024-01-28] MEDS: PROSOURCE / PROSTAT (PYXIS) 30 ML UDC PO SCH (09:09)
[2024-01-28] MEDS: PANTOPRAZOLE 40 MG VIAL IV SCH (09:20)
[2024-01-28] MEDS: MAGNESIUM OXIDE 400 MG TABLET PO ONE (10:40)
[2024-01-28] MEDS ORDERED: CEFT2VIA14 IV (13:32)
[2024-01-28] MEDS ORDERED: vancomycin IV (13:35)
[2024-01-28] MEDS ORDERED: ENOX40DI SQ (13:35)
[2024-01-28] MEDS: CEFTRIAXONE 2 G in IV D5W 100 ML IV SCH (14:02)
[2024-01-28] MEDS: VANCOMYCIN HCL 1.25 GM in IV D5W 250 ML IV ONE (15:40)
[2024-01-28 16:00] VITALS: BP 111/62; TEMP 98.1; O2SAT 98
[2024-01-29] MEDS ORDERED: VANCOMYCIN 750 MG in IV D5W 250 ML IV SCH (02:00)
== END 2024-01-28 19:18 | DRG 299 ==
LOC: ER 16:12 → MED 19:21
PROVIDERS: ATTEND Nurse Practitioner Family
DX: E11.52 Type 2 diabetes mellitus with diabetic peripheral angiopathy with gangrene (principal); E43 Unspecified severe protein-calorie malnutrition; G93.41 Metabolic encephalopathy; N17.0 Acute kidney failure with tubular necrosis; E87.1 Hypo-osmolality and hyponatremia; M86.172 Other acute osteomyelitis, left ankle and foot; M86.171 Other acute osteomyelitis, right ankle and foot; E11.69 Type 2 diabetes mellitus with other specified complication; E11.621 Type 2 diabetes mellitus with foot ulcer; E11.40 Type 2 diabetes mellitus with diabetic neuropathy, unspecified; F01.50 Vascular dementia, unspecified severity, without behavioral disturbance, psychotic disturbance, mood disturbance, and anxiety; D64.9 Anemia, unspecified; E78.5 Hyperlipidemia, unspecified; E88.09 Other disorders of plasma-protein metabolism, not elsewhere classified; I25.10 Atherosclerotic heart disease of native coronary artery without angina pectoris; Z79.01 Long term (current) use of anticoagulants; Z79.4 Long term (current) use of insulin; Z79.82 Long term (current) use of aspirin; Z79.899 Other long term (current) drug therapy; I50.9 Heart failure, unspecified; I11.0 Hypertensive heart disease with heart failure; N40.0 Benign prostatic hyperplasia without lower urinary tract symptoms; K21.9 Gastro-esophageal reflux disease without esophagitis; D72.829 Elevated white blood cell count, unspecified; R13.10 Dysphagia, unspecified; Z79.84 Long term (current) use of oral hypoglycemic drugs; L97.524 Non-pressure chronic ulcer of other part of left foot with necrosis of bone; L97.514 Non-pressure chronic ulcer of other part of right foot with necrosis of bone; D63.8 Anemia in other chronic diseases classified elsewhere; F41.9 Anxiety disorder, unspecified
CPT/HCPCS: 36415; 71045-TC; 80048-TC; 80076-TC; 82962-TC; 83605-TC; 83735-TC; 84100-TC; 84484-TC; 85025-TC; 85652-TC; 85730-TC; 87040-TC; 87086-TC; A4223; G0378; J0696; J1815; J2470; J3371; J3490; J7030; J7060

== ENCOUNTER 2024-03-11 05:59 | Inpatient (IN) | payer MEDICARE, OTHER ==
[~2024-03-11] VITALS: Ht 170.2 cm; Wt 54.9 kg
[~2024-03-11 05:59] MED LIST changes: +CEFT2VIA14 IV; -CLOP75TA15 PO; +HYDR-4077 PO; -HYDR100T27 PO; -NUTR1PAC14 PO; +OMEP20CA15 PO; -PANT20TA2 PO; -SULF1TAB48 PO; +vancomycin IV
[2024-03-11] MEDS ORDERED: IV NS 0.9% 500 ML IV ONE (07:17)
[2024-03-11] MEDS ORDERED: IV SET PRIMARY PUMP SET 1 EA INFUS.SET MC ONE ×2 (07:17→08:56)
[2024-03-11] MEDS ORDERED: LIDOCAINE HCL/MPF 1% 30 ML VIAL IJ ONE (07:18)
[2024-03-11 07:29] LABS: BASOPHILS % (AUTO) 0.3 % (0.0-2.0); EOSINOPHILS # (AUTO) 0.5 K/uL (0.0-0.7); EOSINOPHILS % (AUTO) 4.8 % (0.0-6.0); HEMATOCRIT 27 % (39-51); HEMOGLOBIN 9.1 g/dL (13.5-17.5); LYMPHOCYTES # (AUTO) 2.1 K/uL (0.8-4.8); LYMPHOCYTES % (AUTO) 21.5 % (20.0-44.0); MEAN CORPUSCULAR HEMOGLOBIN 30 PG (26.0-33.0); MEAN CORPUSCULAR HGB CONC 34 g/dl (31.0-36.0); MEAN CORPUSCULAR VOLUME 89 fL (80-96); MONOCYTES # (AUTO) 0.9 K/uL (0.1-1.30); MONOCYTES % (AUTO) 9.3 % (2.0-12.0); NEUTROPHILS # (AUTO) 6.2 K/uL (1.8-8.9); NEUTROPHILS % (AUTO) 64.1 % (43.0-81.0); PLATELET COUNT (AUTO) 325 K/uL (150-450); RED BLOOD CELL COUNT(AUTO) 3.03 MIL/uL (4.5-6.0); RED CELL DISTRIBUTION WIDTH 16.7 % (11.5-15.0); WHITE BLOOD COUNT (AUTO) 9.7 K/uL (4.3-11.0)
[2024-03-11] MEDS ORDERED: IODIXANOL 150 ML IV ONE (07:39)
[2024-03-11 07:40] LABS: CALCIUM, SERUM 8.3 mg/dL (8.5-10.1); CREATININE 0.7 mg/dL (0.6-1.3); POTASSIUM 3.5 mmol/L (3.5-5.1)
[2024-03-11 07:48] LABS: ALBUMIN 2.4 g/dL (3.4-5.0); BILIRUBIN,TOTAL 0.2 mg/dL (0.2-1.0); TOTAL PROTEIN, SERUM 5.8 g/dL (6.4-8.2)
[2024-03-11] MEDS ORDERED: FENTANYL PF 100MCG/2ML AMPUL ONE (08:15)
[2024-03-11] MEDS ORDERED: MIDAZOLAM HCL 2 MG/2ML VIAL ONE (08:15)
[2024-03-11] MEDS ORDERED: hydrALAZINE HCL IV 20 MG VIAL ONE (08:25)
[2024-03-11] MEDS ORDERED: IODIXANOL 320MG/ML 100 ML IV ONE (08:45)
[2024-03-11] MEDS ORDERED: HEPARIN SODIUM, PORCINE 5000 UNITS/1 ML VIAL ONE (08:47)
[2024-03-11] MEDS ORDERED: IODIXANOL 320MG/ML 50 ML IV ONE (08:58)
[2024-03-11] MEDS ORDERED: HEPARIN SODIUM, PORCINE 1,000 UNIT/ML VIAL ONE (09:25)
[2024-03-11] MEDS ORDERED: ANCEF 1 GM/50 ML D5W IV ONE (09:30)
[2024-03-11] MEDS: CEFAZOLIN 2 GM in IV D5W 100 ML IV ONE (09:30)
[2024-03-11] MEDS ORDERED: CEFT2VIA64 IV (10:54)
[2024-03-11] MEDS ORDERED: VANC750V IV (10:54)
[2024-03-11 11:30] VITALS: BP 177/71; O2SAT 100
[2024-03-11] MEDS: CLOPIDOGREL BISULFATE 75 MG TABLET PO ONE (11:35)
[2024-03-11 12:00] VITALS: BP 176/79; TEMP 97.3; O2SAT 99
[2024-03-11] MEDS: IV NS 0.9% 1,000 ML IV PRN (12:02)
[2024-03-11 12:04] VITALS: BP 175/71; O2SAT 100
[2024-03-11] MEDS: ASPIRIN 81 MG TAB.CHEW PO ONE (12:04)
[2024-03-11 13:00] VITALS: BP 133/72; O2SAT 97
[2024-03-11 14:00] VITALS: BP 159/66; O2SAT 98
[2024-03-11 15:00] VITALS: BP 154/63; O2SAT 96
[2024-03-12] MEDS ORDERED: ASPIRIN 81 MG TAB.CHEW PO SCH (09:00)
== END 2024-03-11 15:38 | DRG 272 ==
LOC: CATHLAB 05:59 → ICU 10:38
PROVIDERS: ADMIT Internal Medicine; ATTEND Internal Medicine
PROC: 047K341 Dilation of Right Femoral Artery with Drug-eluting Intraluminal Device, using Drug-Coated Balloon, Percutaneous Approach (ICD-10-PCS; principal; 2024-03-11)
PROC: 04CK3ZZ Extirpation of Matter from Right Femoral Artery, Percutaneous Approach (ICD-10-PCS; 2024-03-11)
PROC: 047M3ZZ Dilation of Right Popliteal Artery, Percutaneous Approach (ICD-10-PCS; 2024-03-11)
PROC: B41DYZZ Fluoroscopy of Aorta and Bilateral Lower Extremity Arteries using Other Contrast (ICD-10-PCS; 2024-03-11)
DX: I70.263 Atherosclerosis of native arteries of extremities with gangrene, bilateral legs (principal); I11.0 Hypertensive heart disease with heart failure; F03.90 Unspecified dementia, unspecified severity, without behavioral disturbance, psychotic disturbance, mood disturbance, and anxiety; I50.9 Heart failure, unspecified; I25.10 Atherosclerotic heart disease of native coronary artery without angina pectoris; E11.9 Type 2 diabetes mellitus without complications; M19.90 Unspecified osteoarthritis, unspecified site
CPT/HCPCS: 36246; 36415; 37225; 37232; 71045-TC; 75625; 75710-TC; 80053-TC; 82962-TC; 85025-TC; 85347; A4223; A4340; C1714; C1725; C1726; C1769; C1887; C1894; G0269; G0378; G0500; J0360; J0690; J1644; J2250; J3010; J3490; J7040; J7060; Q9967

== ENCOUNTER 2024-03-31 08:30 | Day surgery (SDC) | payer MEDICARE, OTHER ==
[2024-03-31] VITALS (19 sets, daily range): BP systolic 117–167; BP diastolic 52–70; TEMP 98; O2SAT 99–100
[~2024-03-31] VITALS: Ht 170.2 cm; Wt 54.9 kg
[~2024-03-31 08:30] MED LIST changes: -CEFT2VIA14 IV; +CEFT2VIA64 IV; -DOXY100T2 PO; -ENOX40DI SQ; -ENOX60DI8 SQ; -OMEP20CA15 PO; +VANC750V IV; -vancomycin IV
[2024-03-31] MEDS ORDERED: CLOP75TA15 PO (09:26)
[2024-03-31 09:54] LABS: BASOPHILS # (AUTO) 0.1 K/uL (0.0-0.2); BASOPHILS % (AUTO) 0.4 % (0.0-2.0); EOSINOPHILS # (AUTO) 0.6 K/uL (0.0-0.7); EOSINOPHILS % (AUTO) 4.8 % (0.0-6.0); HEMATOCRIT 29 % (39-51); HEMOGLOBIN 9.8 g/dL (13.5-17.5); LYMPHOCYTES # (AUTO) 3.4 K/uL (0.8-4.8); LYMPHOCYTES % (AUTO) 29.6 % (20.0-44.0); MEAN CORPUSCULAR HEMOGLOBIN 30 PG (26.0-33.0); MEAN CORPUSCULAR HGB CONC 34 g/dl (31.0-36.0); MEAN CORPUSCULAR VOLUME 89 fL (80-96); MONOCYTES # (AUTO) 0.8 K/uL (0.1-1.30); NEUTROPHILS # (AUTO) 6.8 K/uL (1.8-8.9); NEUTROPHILS % (AUTO) 58.2 % (43.0-81.0); PLATELET COUNT (AUTO) 358 K/uL (150-450); RED BLOOD CELL COUNT(AUTO) 3.27 MIL/uL (4.5-6.0); RED CELL DISTRIBUTION WIDTH 16.3 % (11.5-15.0); WHITE BLOOD COUNT (AUTO) 11.7 K/uL (4.3-11.0)
[2024-03-31 10:13] LABS: INR 1.02 (0.91-1.10); PROTHROMBIN TIME 10.8 SECS (9.2-11.1)
[2024-03-31 10:23] LABS: ALBUMIN 2.7 g/dL (3.4-5.0); BILIRUBIN,TOTAL 0.2 mg/dL (0.2-1.0); CREATININE 0.7 mg/dL (0.6-1.3); POTASSIUM 4.5 mmol/L (3.5-5.1); TOTAL PROTEIN, SERUM 6.8 g/dL (6.4-8.2)
[2024-03-31] MEDS ORDERED: IV NS 0.9% 1,000 ML ONE (10:46)
[2024-03-31] MEDS ORDERED: IV SET PRIMARY PUMP SET 1 EA INFUS.SET MC ONE (10:46)
[2024-03-31] MEDS ORDERED: LIDOCAINE HCL/MPF 1% 30 ML VIAL IJ ONE (10:47)
[2024-03-31] MEDS ORDERED: IODIXANOL 150 ML IV ONE (10:47)
[2024-03-31] MEDS ORDERED: MIDAZOLAM HCL 2 MG/2ML VIAL ONE (11:15)
[2024-03-31] MEDS ORDERED: FENTANYL PF 100MCG/2ML AMPUL ONE ×2 (11:15→12:46)
[2024-03-31] MEDS ORDERED: IODIXANOL 320MG/ML 100 ML IV ONE (11:23)
[2024-03-31] MEDS ORDERED: HEPARIN SODIUM, PORCINE 5000 UNITS/1 ML VIAL ONE (11:43)
[2024-03-31] MEDS ORDERED: IODIXANOL 320MG/ML 50 ML IV ONE (12:01)
[2024-03-31] MEDS ORDERED: HEPARIN SODIUM, PORCINE 1,000 UNIT/ML VIAL ONE (12:09)
[2024-03-31] MEDS ORDERED: CEFAZOLIN 2 GM in IV D5W 100 ML IV ONE (14:30)
[2024-03-31] MEDS: CEFAZOLIN 2 GM in IV D5W 100 ML IV ONE (16:27)
[2024-03-31] MEDS ORDERED: CEFAZOLIN 1 GM VIAL IM SCH (21:00)
== END 2024-03-31 19:00 | disposition home or self-care (01) ==
LOC: CATHLAB 08:30 → UNDOADMIN 13:50 → ICU 13:50 → UNDODISIN 18:15 → CATHLAB 19:00
PROVIDERS: ATTEND Surgery Vascular Surgery
DX: I70.262 Atherosclerosis of native arteries of extremities with gangrene, left leg (principal); I25.10 Atherosclerotic heart disease of native coronary artery without angina pectoris; I11.0 Hypertensive heart disease with heart failure; I50.9 Heart failure, unspecified; E11.51 Type 2 diabetes mellitus with diabetic peripheral angiopathy without gangrene; M19.90 Unspecified osteoarthritis, unspecified site; F03.90 Unspecified dementia, unspecified severity, without behavioral disturbance, psychotic disturbance, mood disturbance, and anxiety; Z86.2 Personal history of diseases of the blood and blood-forming organs and certain disorders involving the immune mechanism; Z86.73 Personal history of transient ischemic attack (TIA), and cerebral infarction without residual deficits; Z85.46 Personal history of malignant neoplasm of prostate; Z87.440 Personal history of urinary (tract) infections; Z79.4 Long term (current) use of insulin; Z79.01 Long term (current) use of anticoagulants; Z79.899 Other long term (current) drug therapy; Z98.890 Other specified postprocedural states
CPT/HCPCS: 37225; 71045; 93005; 85025; 85610; 36415; 80053; 75710; 99153 ×2; 99152 ×2; 37228; 85347 ×2; J0690; J3010 ×2; J1644 ×4; C1714; C1769; J7060; J7030 ×2; J2250; C1725 ×2; J3490; A4223; Q9967 ×2; C1887 ×4; C1760; C1894; C1726; 36245; 37229; 75625; G0269; G0378; G0500